=== PATIENT | female | born 1960 | race Caucasian/White ===

== ENCOUNTER → 2019-06-13 14:06 | Outpatient (CLI) | payer BC, SELFPAY ==
[2019-06-13 15:29] LABS: Blood Urea Nitrogen 27 mg/dL (7-17); Carbon Dioxide 23 mmol/L (22-32); Chloride 103 mmol/L (98-107); Estimated Glomerular Filt Rate > 60.0 mL/min (>60); Glucose 101 mg/dL (70-100); HEMOLYSIS < 15 (0-50); Potassium 4.7 mmol/L (3.4-5.1); Sodium 139 mmol/L (137-145)
== END ==
PROVIDERS: PCP Internal Medicine; Visit Provider Internal Medicine
DX: F31.9 Bipolar disorder, unspecified (principal)
CPT/HCPCS: 36415; 80048; 80178

== ENCOUNTER → 2019-06-17 12:43 | Outpatient (CLI) | payer BC, SELFPAY ==
[2019-06-20 11:23] LABS: Ionized Calcium 5.3 mg/dL (4.8-5.6)
[2019-06-20 15:58] LABS: Parathyroid Hormone Int 56 pg/mL (14-64)
== END ==
PROVIDERS: PCP Internal Medicine; Visit Provider Internal Medicine
DX: E83.52 Hypercalcemia (principal)
CPT/HCPCS: 36415; 82330; 83970

== ENCOUNTER → 2019-09-30 13:39 | Outpatient (CLI) | payer BC, SELFPAY ==
[2019-09-30 14:39] LABS: Hemoglobin A1C% w Est Avg Glu 7.8 % (4.0-6.0)
[2019-09-30 15:41] LABS: Blood Urea Nitrogen 30 mg/dL (7-17); Calcium 10.4 mg/dL (8.4-10.2); Carbon Dioxide 24 mmol/L (22-32); Chloride 104 mmol/L (98-107); Estimated Glomerular Filt Rate 57.4 mL/min (>60); Glucose 230 mg/dL (70-100); HEMOLYSIS 19 (0-50); Sodium 137 mmol/L (137-145)
[2019-09-30 16:01] LABS: TSH w/ Reflex to FT4 0.62 uIU/mL (0.47-4.68)
== END ==
PROVIDERS: PCP Internal Medicine; Visit Provider Psychiatry & Neurology Psychiatry
DX: F31.81 Bipolar II disorder (principal)
CPT/HCPCS: 36415; 80048; 80178; 83036; 84443

== ENCOUNTER → 2019-10-01 07:56 | Outpatient (CLI) | payer BC, SELFPAY ==
[2019-10-01 09:30] LABS: Lithium 0.9 mmol/L (0.6-1.2)
== END ==
PROVIDERS: PCP Internal Medicine; Visit Provider Psychiatry & Neurology Psychiatry
DX: F31.81 Bipolar II disorder (principal)
CPT/HCPCS: 36415; 80178

== ENCOUNTER → 2019-10-06 08:47 | Outpatient (CLI) | payer BC, SELFPAY ==
[2019-10-06 10:04] LABS: Lithium 1.1 mmol/L (0.6-1.2)
[2019-10-06 16:07] LABS: Blood Urea Nitrogen 35 mg/dL (7-17); Calcium 10.7 mg/dL (8.4-10.2); Carbon Dioxide 21 mmol/L (22-32); Chloride 106 mmol/L (98-107); Estimated Glomerular Filt Rate 57.4 mL/min (>60); Glucose 151 mg/dL (70-100); HEMOLYSIS < 15 (0-50); Potassium 4.9 mmol/L (3.4-5.1); Sodium 139 mmol/L (137-145)
== END ==
PROVIDERS: Family Provider Internal Medicine; PCP Internal Medicine; Visit Provider Psychiatry & Neurology Psychiatry
DX: F31.81 Bipolar II disorder (principal)
CPT/HCPCS: 36415; 80048; 80178

== ENCOUNTER → 2019-10-13 08:08 | Outpatient (CLI) | payer BC, SELFPAY ==
[2019-10-13 09:08] LABS: BUN Creatinine Ratio 25.6 (6-22); Blood Urea Nitrogen 23 mg/dL (7-17); Calcium 10.3 mg/dL (8.4-10.2); Carbon Dioxide 24 mmol/L (22-32); Chloride 106 mmol/L (98-107); Estimated Glomerular Filt Rate > 60.0 mL/min (>60); Glucose 220 mg/dL (70-100); HEMOLYSIS < 15 (0-50); Sodium 138 mmol/L (137-145)
[2019-10-13 09:10] LABS: Potassium 5.4 mmol/L (3.4-5.1)
[2019-10-13 09:32] LABS: Lithium 0.6 mmol/L (0.6-1.2)
== END ==
PROVIDERS: PCP Internal Medicine; Visit Provider Psychiatry & Neurology Psychiatry
DX: F31.81 Bipolar II disorder (principal)
CPT/HCPCS: 36415; 80048; 80178

== ENCOUNTER → 2019-10-15 09:18 | Outpatient (CLI) | payer BC, SELFPAY ==
[2019-10-15 10:39] LABS: Blood Urea Nitrogen 21 mg/dL (7-17); Carbon Dioxide 25 mmol/L (22-32); Chloride 103 mmol/L (98-107); Estimated Glomerular Filt Rate 57.4 mL/min (>60); Glucose 216 mg/dL (70-100); HEMOLYSIS < 15 (0-50); Sodium 139 mmol/L (137-145)
[2019-10-15 14:22] LABS: Potassium 5.9 mmol/L (3.4-5.1)
== END ==
PROVIDERS: PCP Internal Medicine; Visit Provider Internal Medicine
DX: E87.5 Hyperkalemia (principal)
CPT/HCPCS: 36415; 80048

== ENCOUNTER → 2019-10-17 08:48 | Outpatient (CLI) | payer BC, SELFPAY ==
[2019-10-17 09:52] LABS: BUN Creatinine Ratio 20.9 (6-22); Blood Urea Nitrogen 23 mg/dL (7-17); Calcium 10.7 mg/dL (8.4-10.2); Carbon Dioxide 23 mmol/L (22-32); Chloride 105 mmol/L (98-107); Estimated Glomerular Filt Rate 51.4 mL/min (>60); Glucose 251 mg/dL (70-100); HEMOLYSIS < 15 (0-50); Lithium 0.7 mmol/L (0.6-1.2); Potassium 4.8 mmol/L (3.4-5.1); Sodium 139 mmol/L (137-145)
== END ==
PROVIDERS: Family Provider Internal Medicine; PCP Internal Medicine; Visit Provider Psychiatry & Neurology Psychiatry
DX: F31.81 Bipolar II disorder (principal)
CPT/HCPCS: 36415; 80048; 80178

== ENCOUNTER → 2019-10-27 09:46 | Outpatient (CLI) | payer BC, SELFPAY ==
[2019-10-27 10:35] LABS: Lithium 0.7 mmol/L (0.6-1.2)
== END ==
PROVIDERS: Family Provider Psychiatry & Neurology Psychiatry; PCP Internal Medicine; Visit Provider Internal Medicine
DX: F31.9 Bipolar disorder, unspecified (principal)
CPT/HCPCS: 36415; 80178

== ENCOUNTER → 2019-10-29 11:26 | Outpatient (CLI) | payer BC, SELFPAY ==
[2019-10-29 12:30] LABS: Add Manual Diff / Slide Review NO; Basophils Absolute Auto 100 /uL (0-100); Basophils Percent Auto 1.5 % (0-2); Eosinophils Absolute Auto 300 /uL (0-450); Eosinophils Percent Auto 4.2 % (2-4); Hematocrit 39.2 % (36-46); Hemoglobin 13.3 g/dL (12.0-16.0); Lymphocytes Absolute Auto 2300 /uL (1100-4500); Lymphocytes Percent Auto 28.7 % (25-40); Mean Corpuscular HGB Conc 33.9 % (30-36); Mean Corpuscular Hemoglobin 29.7 PG (26-34); Mean Corpuscular Volume 87.6 fL (80-100); Monocytes Absolute Auto 400 /uL (0-900); Monocytes Percent Auto 5.4 % (3-14); Neutrophils Absolute Auto 4800 /uL (1500-7000); Neutrophils Percent Auto 60.2 % (50-75); Platelet Count 241 X10^3/uL (150-400); Red Blood Cell Count 4.47 X10^6/uL (4.0-5.2); Red Cell Distribution Width 13.9 % (11.6-14.8); White Blood Cell Count 7.9 X10^3/uL (4.5-11.0)
[2019-10-29 12:55] LABS: Lithium 0.6 mmol/L (0.6-1.2)
[2019-10-29 12:59] LABS: BUN Creatinine Ratio 24.4 (6-22); Blood Urea Nitrogen 22 mg/dL (7-17); Calcium 10.3 mg/dL (8.4-10.2); Carbon Dioxide 22 mmol/L (22-32); Chloride 103 mmol/L (98-107); Estimated Glomerular Filt Rate > 60.0 mL/min (>60); Glucose 336 mg/dL (70-100); HEMOLYSIS < 15 (0-50); Sodium 138 mmol/L (137-145)
[2019-10-29 13:29] LABS: TSH w/ Reflex to FT4 0.48 uIU/mL (0.47-4.68)
== END ==
PROVIDERS: Family Provider Psychiatry & Neurology Psychiatry; PCP Internal Medicine; Visit Provider Internal Medicine
DX: I10 Essential (primary) hypertension (principal); F31.62 Bipolar disorder, current episode mixed, moderate; E03.2 Hypothyroidism due to medicaments and other exogenous substances
CPT/HCPCS: 36415; 80048; 80178; 84443; 85025

== ENCOUNTER → 2019-11-06 09:01 | Outpatient (CLI) | payer BC, SELFPAY ==
[2019-11-06 11:35] LABS: Lithium 0.7 mmol/L (0.6-1.2)
[2019-11-06 11:38] LABS: Blood Urea Nitrogen 32 mg/dL (7-17); Calcium 10.4 mg/dL (8.4-10.2); Carbon Dioxide 24 mmol/L (22-32); Chloride 105 mmol/L (98-107); Estimated Glomerular Filt Rate 57.4 mL/min (>60); Glucose 206 mg/dL (70-100); HEMOLYSIS < 15 (0-50); Potassium 5.1 mmol/L (3.4-5.1); Sodium 138 mmol/L (137-145)
[2019-11-06 12:03] LABS: TSH w/ Reflex to FT4 0.77 uIU/mL (0.47-4.68)
== END ==
PROVIDERS: PCP Internal Medicine; Visit Provider Psychiatry & Neurology Psychiatry
DX: F31.81 Bipolar II disorder (principal)
CPT/HCPCS: 36415; 80048; 80178; 84443

== ENCOUNTER 2019-12-03 14:00 | Emergency (ER) | payer BC, SELFPAY ==
[2019-12-03 14:10] VITALS: BP 146/84; PULSE 93; RESP 15; TEMP 36.9; O2SAT 98; BMI 32.9
--- NOTE | 2019-12-03 14:26 | ED.NAVMDI ---
HPI - Nausea/Vomiting/Diarrhea <HAROON Aguila - Last Filed: 12/03/19 17:23> General Chief complaint: Nausea/Vomiting/Diarrhea Stated complaint: N/V/D Time Seen by Provider: 12/03/19 14:10 Source: patient Mode of arrival: Wheelchair Limitations: no limitations History of Present Illness HPI Narrative: 58-year-old female with a history of diabetes, bipolar, and a TIA, presents emergency department today complaining of nausea, vomiting, and diarrhea I started last night at 8:00 p.m.. She states she ate dinner and started vomiting. She last vomited for hours ago and last had an episode of diarrhea around the same time. She is slowly starting to feel better. She denies any abdominal pain, fevers, chills, chest pain, shortness of breath, dizziness, syncope, other concerns. He denies any abdominal surgeries or any sick contacts. Patient denies any recent antibiotic use. Related Data Home Medications Medication Instructions Recorded Confirmed aspirin 81 mg PO QDAY #0 01/22/17 insulin lispro [Humalog U-100 0 u SQ #0 01/27/17 Insulin] Previous Rx's Medication Instructions Recorded levothyroxine [Synthroid] 125 mcg PO QDAY@0600 #90 07/09/12 alprazolam 0.5 mg PO SEE INSTRUCTIONS #30 tab 12/06/16 lithium carbonate 300 mg PO BID #180 tab 12/12/16 nystatin 1 sandra TOPICAL 5XD #30 gm 01/22/17 triamcinolone acetonide 1 sandra TOPICAL BID #15 gm 01/22/17 ondansetron 4 mg PO Q6-8H #14 tab 12/03/19 Allergies Allergy/AdvReac Type Severity Reaction Status Date / Time clindamycin [CLINDAMYCIN] Allergy Severe Facial Verified 12/03/19 14:10 swelling erythromycin base Allergy Severe ANAPHYLAXIS Verified 12/03/19 14:10 Penicillins Allergy Severe ANAPHYLAXIS Verified 12/03/19 14:10 morphine AdvReac Mild VOMITING Verified 12/03/19 14:10 Review of Systems <HAROON Aguila - Last Filed: 12/03/19 17:23> Review of Systems Narrative: REVIEW OF SYSTEMS: GENERAL: Denies fever, chills, malaise, or wt. loss. HENT: No head trauma, sore throat, or dysphagia. EYES: No loss of vision, double vision, eye pain, or irritation. CARDIOVASCULAR: No chest pain, palpitations, or orthopnea. RESPIRATORY: No shortness of breath or cough. GASTROINTESTINAL: Reports nausea, vomiting, and diarrhea. GENITOURINARY: No flank pain, urinary incontinence, hesitancy, frequency, or dysuria. MUSCULOSKELETAL: No pain, weakness, or trauma. INTEGUMENTARY: No rash, lesions, or pruritus. NEURO: No numbness, tingling, memory loss, confusion, or headaches. PSYCH: No behavior or mood changes. Patient History <HAROON Aguila - Last Filed: 12/03/19 17:23> Surgical History Status post surgery (12/22/11) Status post tonsillectomy and adenoidectomy Social History Smoking Status: Unknown if ever smoked Smoking Status: Unknown if ever smoked alcohol intake frequency: holidays/special occasions only Substance Use Type: does not use Exam <HAROON Aguila - Last Filed: 12/03/19 17:23> Initial Vital Signs Initial Vital Signs: Vital Signs Temperature 98.5 F 12/03/19 14:10 Pulse Rate 93 H 12/03/19 14:10 Respiratory Rate 15 12/03/19 14:10 Blood Pressure 146/84 H 12/03/19 14:10 Pulse Oximetry 98 12/03/19 14:10 PHYSICAL EXAMINATION: GENERAL: Well groomed, alert, and cooperative. Answers questions promptly and appropriately. Vital signs noted. HENT: Normocephalic, atraumatic. Hearing intact. Oral mucosa is pink and moist. EYES: Conjunctiva pink, sclera white, no periorbital swelling. CARDIOVASCULAR: S1 and S2 sounds normal. Regular rate and rhythm, no murmurs, clicks, or bruits. No pedal edema. RESPIRATORY: Normal respiratory rate, trachea midline, airway patent. No stridor, nasal flaring or accessory muscle use. Lungs are clear in all oropeza without wheeze, rhonchi, or crackles. GASTROINTESTINAL: Bowel sounds normoactive. Abdomen is soft and non-tender. No organomegaly, no palpable masses. GENITALURINARY: No flank tenderness. MUSCULOSKELETAL: Normal gait and coordination. Equal tone and mass bilaterally. EXTREMITIES: CMS intact, no pedal edema. SKIN: Warm, dry, soft, appropriate color for ethnicity. No lesions, rashes, or wounds to visualized areas. NEURO: Alert and Oriented X 3. Good coordination. No ataxia, or sensory deficits, or cognitive issues. PSYCH: Appropriate affect and mood. <Mildred Reynolds MD - Last Filed: 12/04/19 06:53> Initial Vital Signs Initial Vital Signs: Vital Signs Temperature 98.5 F 12/03/19 14:10 Pulse Rate 93 H 12/03/19 14:10 Respiratory Rate 15 12/03/19 14:10 Blood Pressure 146/84 H 12/03/19 14:10 Pulse Oximetry 98 12/03/19 14:10 Course <HAROON Aguila - Last Filed: 12/03/19 17:23> Course Course Narrative: Patient was given 1 L of IV normal saline and Zofran for symptoms. After administration medications, patient states she is feeling significantly better. She continues to deny abdominal pain. patient states she is ready to be discharged home at this time. Orders Ordered: Discontinued Medications Sodium Chloride (Normal Saline 0.9%) 1,000 mls @ 1,000 mls/hr IV BOLUS ONE Stop: 12/03/19 15:23 Last Infusion: 12/03/19 15:42 Dose: 0 mls/hr Documented by: Admin: 12/03/19 14:39 Dose: 1,000 mls/hr Documented by: MERA Ondansetron HCl (Zofran) 4 mg IV NOW ONE Stop: 12/03/19 14:25 Last Admin: 12/03/19 14:38 Dose: 4 mg Documented by: MERA Vital Signs Vital signs: Vital Signs - 8 hr 12/03/19 14:10 12/03/19 15:00 Temperature 98.5 F Pulse Rate 93 H 79 Respiratory Rate 15 18 Blood Pressure 146/84 H Blood Pressure [Right Arm] 133/59 L Pulse Oximetry 98 98 <Mildred Reynolds MD - Last Filed: 12/04/19 06:53> Orders Ordered: Discontinued Medications Sodium Chloride (Normal Saline 0.9%) 1,000 mls @ 1,000 mls/hr IV BOLUS ONE Stop: 12/03/19 15:23 Last Infusion: 12/03/19 15:42 Dose: 0 mls/hr Documented by: Admin: 12/03/19 14:39 Dose: 1,000 mls/hr Documented by: MERA Ondansetron HCl (Zofran) 4 mg IV NOW ONE Stop: 12/03/19 14:25 Last Admin: 12/03/19 14:38 Dose: 4 mg Documented by: MERA Vital Signs Vital signs: Vital Signs - 8 hr 12/03/19 14:10 12/03/19 15:00 Temperature 98.5 F Pulse Rate 93 H 79 Respiratory Rate 15 18 Blood Pressure 146/84 H Blood Pressure [Right Arm] 133/59 L Pulse Oximetry 98 98 MDM - Nausea/Vomiting/Diarrhea <HAROON Aguila - Last Filed: 12/03/19 17:23> Medical Records Attestation: I reviewed the patient's medical records. Lab Data Attestation: I reviewed the patient's lab results. Result diagrams: 12/03/19 14:31 12/03/19 14:31 Labs: Lab Results 12/03/19 12/03/19 12/03/19 Range/Units 14:31 14:31 14:31 WBC 10.3 (4.5-11.0) X10^3/uL RBC 4.42 (4.0-5.2) X10^6/uL Hgb 13.1 (12.0-16.0) g/dL Hct 38.9 (36-46) % MCV 87.9 (80-100) fL MCH 29.7 (26-34) PG MCHC 33.8 (30-36) % RDW 13.5 (11.6-14.8) % Plt Count 234 (150-400) X10^3/uL Neut % (Auto) 90.4 H (50-75) % Lymph % (Auto) 5.3 L (25-40) % [place] % (Auto) 3.3 (3-14) % Eos % (Auto) 0.3 L (2-4) % Baso % (Auto) 0.7 (0-2) % Neut # (Auto) 9300 H (3026-1772) /uL Lymph # (Auto) 500 L (0429-7174) /uL [place] # (Auto) 300 (0-900) /uL Eos # (Auto) 0 (0-450) /uL Baso # (Auto) 100 (0-100) /uL Sodium 136 L (137-145) mmol/L Potassium 4.7 (3.4-5.1) mmol/L Chloride 104 (98-107) mmol/L Carbon Dioxide 20 L (22-32) mmol/L BUN 28 H (7-17) mg/dL Creatinine 0.90 (0.52-1.04) mg/dL Estimated GFR > 60.0 (>60) mL/min BUN/Creatinine Ratio 31.1 H (6-22) Glucose 302 H (70-100) mg/dL Calcium 9.8 (8.4-10.2) mg/dL Total Bilirubin 0.5 (0.2-1.3) mg/dL AST 29 (14-36) IU/L ALT 35 H (<35) IU/L Alkaline Phosphatase 43 (38-126) U/L Total Protein 7.4 (6.3-8.2) g/dL Albumin 4.5 (3.5-5.0) g/dL Globulin 2.9 (1.7-4.1) g/dL Albumin/Globulin Ratio 1.6 (1.0-2.8) [place] 1.0 (0.6-1.2) mmol/L MDM Narrative Medical decision making narrative: This is a 58-year-old female with a history of diabetes in bipolar, presenting to the emergency department for nausea, vomiting, and diarrhea for less than 24 hours which has slowly been resolving. I suspect this most likely caused by gastroenteritis due to resolution of symptoms in the short amount of time, lack of significant lab changes, and lack of other concerning symptoms such as abdominal pain or high fever. Differential also includes food poisoning, or early-onset abdominal etiology ( Less likely as symptoms have almost completely resolved after administration of saline and Zofran.). Patient remained hemodynamically stable throughout the emergency department stay. She did not vomit, or have any episodes of diarrhea during her stay at this time. Patient was discharged with Zofran and counseled extensively about return emergency department for any new or worsening symptoms such as abdominal pain, high fevers, uncontrollable vomiting. She agreed to plan of care verbalized understanding. <Mildred Reynolds MD - Last Filed: 12/04/19 06:53> Lab Data Labs: Lab Results 12/03/19 12/03/19 12/03/19 Range/Units 14:31 14:31 14:31 WBC 10.3 (4.5-11.0) X10^3/uL RBC 4.42 (4.0-5.2) X10^6/uL Hgb 13.1 (12.0-16.0) g/dL Hct 38.9 (36-46) % MCV 87.9 (80-100) fL MCH 29.7 (26-34) PG MCHC 33.8 (30-36) % RDW 13.5 (11.6-14.8) % Plt Count 234 (150-400) X10^3/uL Neut % (Auto) 90.4 H (50-75) % Lymph % (Auto) 5.3 L (25-40) % [place] % (Auto) 3.3 (3-14) % Eos % (Auto) 0.3 L (2-4) % Baso % (Auto) 0.7 (0-2) % Neut # (Auto) 9300 H (5813-5814) /uL Lymph # (Auto) 500 L (2453-9865) /uL [place] # (Auto) 300 (0-900) /uL Eos # (Auto) 0 (0-450) /uL Baso # (Auto) 100 (0-100) /uL Sodium 136 L (137-145) mmol/L Potassium 4.7 (3.4-5.1) mmol/L Chloride 104 (98-107) mmol/L Carbon Dioxide 20 L (22-32) mmol/L BUN 28 H (7-17) mg/dL Creatinine 0.90 (0.52-1.04) mg/dL Estimated GFR > 60.0 (>60) mL/min BUN/Creatinine Ratio 31.1 H (6-22) Glucose 302 H (70-100) mg/dL Calcium 9.8 (8.4-10.2) mg/dL Total Bilirubin 0.5 (0.2-1.3) mg/dL AST 29 (14-36) IU/L ALT 35 H (<35) IU/L Alkaline Phosphatase 43 (38-126) U/L Total Protein 7.4 (6.3-8.2) g/dL Albumin 4.5 (3.5-5.0) g/dL Globulin 2.9 (1.7-4.1) g/dL Albumin/Globulin Ratio 1.6 (1.0-2.8) [place] 1.0 (0.6-1.2) mmol/L Discharge Plan Departure Patient Disposition: Home Clinical Impression: Gastroenteritis Discharge Date/Time: 12/03/19 15:51 Instructions: DI for Viral Gastroenteritis -- Adult Activity Restrictions/Additional Instructions: Thank you for entrusting me with your care today. As discussed, I suspect ear symptoms are caused by viral gastroenteritis or food poisoning. Your labs are unremarkable. Your lithium level is 1.0 and is within normal limits. I have prescribed you an anti nausea medication, please take this as needed. Continue to drink fluids such as Gatorade. Follow up with your primary care provider in 1-2 weeks for further evaluation if symptoms continue. Return emergency department for new or worsening symptoms such as uncontrollable vomiting, high fevers, severe abdominal pain, chest pain, or other concerns. Prescriptions: New ondansetron 4 mg tablet,disintegrating 4 mg PO Q6-8H Qty: 14 RF: 0 No Action levothyroxine [Synthroid] 125 MCG tablet 125 mcg PO QDAY@0600 Qty: 90 RF: 3 alprazolam 0.5 MG tablet 0.5 mg PO SEE INSTRUCTIONS Qty: 30 RF: 0 lithium carbonate 300 MG tablet extended release 300 mg PO BID Qty: 180 RF: 5 aspirin 81 MG tablet,delayed release (DR/EC) 81 mg PO QDAY Qty: 0 RF: 0 triamcinolone acetonide 0.5 % cream 1 sandra Topical BID Qty: 15 RF: 1 nystatin 30 GM cream 1 sandra Topical 5XD Qty: 30 RF: 1 insulin lispro [Humalog U-100 Insulin] 100 UNIT/1 ML solution 0 u SQ Qty: 0 RF: 0 Referrals: Josseline Munson [Primary Care Provider] -
[2019-12-03 14:38] LABS: Add Manual Diff / Slide Review NO; Basophils Absolute Auto 100 /uL (0-100); Basophils Percent Auto 0.7 % (0-2); Eosinophils Absolute Auto 0 /uL (0-450); Eosinophils Percent Auto 0.3 % (2-4); Hematocrit 38.9 % (36-46); Hemoglobin 13.1 g/dL (12.0-16.0); Lymphocytes Absolute Auto 500 /uL (1100-4500); Lymphocytes Percent Auto 5.3 % (25-40); Mean Corpuscular HGB Conc 33.8 % (30-36); Mean Corpuscular Hemoglobin 29.7 PG (26-34); Mean Corpuscular Volume 87.9 fL (80-100); Monocytes Absolute Auto 300 /uL (0-900); Monocytes Percent Auto 3.3 % (3-14); Neutrophils Absolute Auto 9300 /uL (1500-7000); Neutrophils Percent Auto 90.4 % (50-75); Platelet Count 234 X10^3/uL (150-400); Red Blood Cell Count 4.42 X10^6/uL (4.0-5.2); Red Cell Distribution Width 13.5 % (11.6-14.8); White Blood Cell Count 10.3 X10^3/uL (4.5-11.0)
[2019-12-03] MEDS: ONDANSETRON 4 MG/2 ML INJ IV (14:38)
[2019-12-03] MEDS: SODIUM CHLORIDE 0.9% 1,000 ML 1000 ML IV (14:39)
[2019-12-03 14:49] LABS: Alanine Aminotransferase 35 IU/L (<35); Albumin 4.5 g/dL (3.5-5.0); Albumin Globulin Ratio 1.6 (1.0-2.8); Alkaline Phosphatase 43 U/L (38-126); Aspartate Aminotransferase 29 IU/L (14-36); BUN Creatinine Ratio 31.1 (6-22); Bilirubin Total 0.5 mg/dL (0.2-1.3); Blood Urea Nitrogen 28 mg/dL (7-17); Calcium 9.8 mg/dL (8.4-10.2); Carbon Dioxide 20 mmol/L (22-32); Chloride 104 mmol/L (98-107); Estimated Glomerular Filt Rate > 60.0 mL/min (>60); Globulin 2.9 g/dL (1.7-4.1); Glucose 302 mg/dL (70-100); HEMOLYSIS 44 (0-50); Potassium 4.7 mmol/L (3.4-5.1); Sodium 136 mmol/L (137-145); Total Protein 7.4 g/dL (6.3-8.2)
[2019-12-03 15:00] VITALS: BP 133/59; PULSE 79; RESP 18; O2SAT 98
== END 2019-12-03 15:51 | disposition home or self-care (01) ==
PROVIDERS: Emergency Provider Nurse Practitioner; PCP Internal Medicine
DX: K52.9 Noninfective gastroenteritis and colitis, unspecified (principal)
CPT/HCPCS: 36415; 80053; 80178; 85025; 96361; 96374; 99284; J2405

== ENCOUNTER → 2019-12-04 10:58 | Outpatient (CLI) | payer BC, SELFPAY ==
[2019-12-04 13:07] LABS: Lithium 0.6 mmol/L (0.6-1.2)
[2019-12-04 13:08] LABS: BUN Creatinine Ratio 23.6 (6-22); Blood Urea Nitrogen 26 mg/dL (7-17); Calcium 9.3 mg/dL (8.4-10.2); Carbon Dioxide 23 mmol/L (22-32); Chloride 104 mmol/L (98-107); Estimated Glomerular Filt Rate 51.4 mL/min (>60); Glucose 281 mg/dL (70-100); HEMOLYSIS < 15 (0-50); Potassium 4.3 mmol/L (3.4-5.1); Sodium 138 mmol/L (137-145)
== END ==
PROVIDERS: Family Provider Internal Medicine; PCP Internal Medicine; Visit Provider Psychiatry & Neurology Psychiatry
DX: F31.81 Bipolar II disorder (principal)
CPT/HCPCS: 36415; 80048; 80178

== ENCOUNTER → 2019-12-24 13:47 | Outpatient (CLI) | payer BC, SELFPAY ==
[2019-12-24 15:10] LABS: Lithium 0.6 mmol/L (0.6-1.2)
[2019-12-24 15:16] LABS: Blood Urea Nitrogen 23 mg/dL (7-17); Calcium 10.6 mg/dL (8.4-10.2); Carbon Dioxide 21 mmol/L (22-32); Chloride 104 mmol/L (98-107); Estimated Glomerular Filt Rate 57.1 mL/min (>60); Glucose 234 mg/dL (70-100); HEMOLYSIS < 15 (0-50); Potassium 4.6 mmol/L (3.4-5.1); Sodium 137 mmol/L (137-145)
== END ==
PROVIDERS: Family Provider Internal Medicine; PCP Internal Medicine; Referring Provider Psychiatry & Neurology Psychiatry; Visit Provider Psychiatry & Neurology Psychiatry
DX: F31.81 Bipolar II disorder (principal)
CPT/HCPCS: 36415; 80048; 80178

== ENCOUNTER → 2020-02-11 12:08 | Outpatient (CLI) | payer BC, SELFPAY ==
[2020-02-11 13:57] LABS: Influenza A - CEPHEID Flu A NEGATIVE (NEGATIVE); Influenza B - CEPHEID Flu B NEGATIVE (NEGATIVE)
[2020-02-13 04:07] LABS: COVID19 Sendout Not Detected (Not Detected)
== END ==
PROVIDERS: Family Provider Internal Medicine; PCP Internal Medicine; Visit Provider Physician Assistant
DX: R68.89 Other general symptoms and signs (principal)
CPT/HCPCS: 87502; 87635

== ENCOUNTER → 2020-05-14 13:54 | Outpatient (CLI) | payer BC, SELFPAY ==
[2020-05-14 15:24] LABS: BUN Creatinine Ratio 23.5 (6-22); Blood Urea Nitrogen 24 mg/dL (7-17); Calcium 10.6 mg/dL (8.4-10.2); Carbon Dioxide 21 mmol/L (22-32); Chloride 105 mmol/L (98-107); Estimated Glomerular Filt Rate 55.9 mL/min (>60); Glucose 206 mg/dL (70-100); HEMOLYSIS < 15 (0-50); Potassium 4.5 mmol/L (3.4-5.1); Sodium 136 mmol/L (137-145)
[2020-05-14 15:55] LABS: Lithium 0.5 mmol/L (0.6-1.2)
== END ==
PROVIDERS: Family Provider Internal Medicine; PCP Internal Medicine; Referring Provider Psychiatry & Neurology Psychiatry; Visit Provider Psychiatry & Neurology Psychiatry
DX: F31.81 Bipolar II disorder (principal)
CPT/HCPCS: 36415; 80048; 80178

== ENCOUNTER → 2020-07-30 14:02 | Outpatient (CLI) | payer BC, SELFPAY ==
[2020-07-30 15:59] LABS: Blood Urea Nitrogen 29 mg/dL (7-17); Carbon Dioxide 26 mmol/L (22-32); Chloride 105 mmol/L (98-107); Glucose 137 mg/dL (70-100); HEMOLYSIS < 15 (0-50); Sodium 139 mmol/L (137-145)
[2020-07-30 16:01] LABS: Calcium 10.5 mg/dL (8.4-10.2); Estimated Glomerular Filt Rate 39.4 mL/min (>60)
[2020-07-30 16:02] LABS: Potassium 5.5 mmol/L (3.4-5.1)
[2020-07-30 16:07] LABS: Lithium 0.8 mmol/L (0.6-1.2)
== END ==
PROVIDERS: Family Provider Internal Medicine; PCP Internal Medicine; Referring Provider Psychiatry & Neurology Psychiatry; Visit Provider Psychiatry & Neurology Psychiatry
DX: F31.81 Bipolar II disorder (principal)
CPT/HCPCS: 36415; 80048; 80178

== ENCOUNTER → 2020-08-05 10:39 | Outpatient (CLI) | payer BC, SELFPAY ==
[2020-08-05 12:03] LABS: Hemoglobin A1C% w Est Avg Glu 7.8 % (4.0-6.0)
[2020-08-05 12:17] LABS: BUN Creatinine Ratio 22.5 (6-22); Blood Urea Nitrogen 27 mg/dL (7-17); Calcium 10.1 mg/dL (8.4-10.2); Carbon Dioxide 24 mmol/L (22-32); Chloride 106 mmol/L (98-107); Estimated Glomerular Filt Rate 46.3 mL/min (>60); Glucose 183 mg/dL (70-100); HEMOLYSIS < 15 (0-50); Potassium 5.1 mmol/L (3.4-5.1); Sodium 139 mmol/L (137-145)
== END ==
PROVIDERS: Family Provider Internal Medicine; PCP Internal Medicine; Referring Provider Internal Medicine; Visit Provider Internal Medicine
DX: E87.5 Hyperkalemia (principal); E11.9 Type 2 diabetes mellitus without complications; Z79.4 Long term (current) use of insulin
CPT/HCPCS: 36415; 80048; 83036

== ENCOUNTER → 2020-08-09 11:16 | Outpatient (CLI) | payer BC, SELFPAY ==
[2020-08-09 12:11] LABS: BUN Creatinine Ratio 29.7 (6-22); Blood Urea Nitrogen 33 mg/dL (7-17); Carbon Dioxide 20 mmol/L (22-32); Chloride 105 mmol/L (98-107); Estimated Glomerular Filt Rate 50.7 mL/min (>60); Glucose 229 mg/dL (70-100); HEMOLYSIS < 15 (0-50); Potassium 4.9 mmol/L (3.4-5.1); Sodium 139 mmol/L (137-145)
[2020-08-09 13:10] LABS: Lithium 0.5 mmol/L (0.6-1.2)
== END ==
PROVIDERS: Family Provider Internal Medicine; PCP Internal Medicine; Referring Provider Psychiatry & Neurology Psychiatry; Visit Provider Psychiatry & Neurology Psychiatry
DX: F31.81 Bipolar II disorder (principal)
CPT/HCPCS: 36415; 80048; 80178

== ENCOUNTER → 2020-08-25 13:58 | Outpatient (CLI) | payer BC, SELFPAY ==
--- NOTE | 2020-08-25 14:02 | DIET.PN ---
Dietary Progress Note Assessment: 59y F seeking help from RD for uncontrolled DM c hyperglycemia and CKD3. Pt has been cutting back on all dairy, protein, and potassium foods to manage kidney function and has confusion regarding reccs for DM2 and CKD one says to eat refined carbs the other says not to Pt reports 34y hx DM2, has bipolar so takes lithium for 25y, had triple bleed stroke and was in intensive inpatient rehab and at some point was on dialysis, now at lowest dose lithium possible, but has kidney impairment. Pt has CGM which is helpful as she has difficulty manipulating numbers in her head or writing them r/t stroke. Pts CGM shows a consistent spike in BG around 5pm where it goes between 250-350 and pt reports associated fatigue and irritability. Pt cannot correlate this to food intake as it is 3hr after main meal. Pt stopped swimming during covid- will go back tomorrow, noticed BG spike started during covid when she stopped swimming. Pt takes long acting 30U at 6am and 4pm and switched it herself from 7am and 7pm recently to try to manage her afternoon BG spike. Metformin 1,000mg bid Pt would like to have flexibility to eat a gourmet dessert on occasion and use lantus to bring bg down Usual Day: 6am: wakes, drinks coffee 10oz black 7am(Breakfast): steel cut oats c (seeds-flax, sesame, slivered almonds), apple, raisins, currants meds 11am (mini lunch): apple c cheese (havarti, really sharp cheddar) 2pm (main meal): vegetable stir rosado, salmon, cod, pork, basmati rice 6:30 (small meal)- leftovers goes to bed 9pm likes to get 9hrs sleep, gets it every night, feels refreshed in am BG would drop 85 and wake her up has toast c butter and goat milk BG goes up to 250 or higher at 5pm most days loves handful nuts, tofu, beans, loves vegetables and fruit bakes bread Regularly eats tomato, avocado, potato in soup, loves soup drinks: fizzy water, lemon juce in hot water c chamomile, no etoh Labs: eGFR: 55.9-->39.4-->46.3-->50.7 L all in 3mo Cr: 1.02-->1.38-->1.2-->1.11 H K+: 4.5-->5.5-->5.1-->4.9 no phosphorus labs noted Nutrition Diagnosis: 1. altered nutrition related laboratory values r/t kidney impairment and nutrition related knowledge deficit aeb pt has impaired kidney labs (see above), pt is confused about what to eat to manage DM2 and CKD. Interventions: 1. Educated pt on CKD/DM2 diet tailored to her current set of labs and taking into consideration her limited ability to manipulate numbers. 2. Discussed protein intake using food models and problem solved each meal so pt eating appropriate pro amount to support renal fxn. Pt will choose plant proteins over animal. 3. Discussed potassium in diet. Using handout, highlighted items to limit and discussed proportion of each including how to pair together. Provided pt handout on reducing potassium in potatoes for occasional consumption. 4. Discussed phosphorus in foods, to avoid processed foods containing phos additives. To limit dairy to 1 serving per day. To not worry as much about beans/nuts as the phosphorus is only 60% bioavailable but limit to 1/2c per meal. 5. Request pt get phosphorus lab drawn with others on regular basis. EER: 50g PRO limit, 2g sodium limit, 2g phos limit, 2g K+ limit Monitoring/Evaluations: f/u in 2 w to assess progress, problem solve barriers, and assess new labs. We will see how reintroducing swimming affects afternoon BG, if no change, consider medication modification.
== END ==
PROVIDERS: Family Provider Internal Medicine; PCP Internal Medicine; Referring Provider Internal Medicine; Visit Provider Internal Medicine
DX: E11.22 Type 2 diabetes mellitus with diabetic chronic kidney disease (principal); E11.65 Type 2 diabetes mellitus with hyperglycemia; N18.30 Chronic kidney disease, stage 3 unspecified; N28.9 Disorder of kidney and ureter, unspecified; Z79.4 Long term (current) use of insulin; Z71.3 Dietary counseling and surveillance
CPT/HCPCS: 97802

== ENCOUNTER → 2020-09-21 12:37 | Outpatient (CLI) | payer BC, SELFPAY ==
[2020-09-21 15:51] LABS: Lithium 0.5 mmol/L (0.6-1.2)
[2020-09-21 15:55] LABS: BUN Creatinine Ratio 25.7 (6-22); Blood Urea Nitrogen 27 mg/dL (7-17); Calcium 9.8 mg/dL (8.4-10.2); Carbon Dioxide 21 mmol/L (22-32); Chloride 109 mmol/L (98-107); Glucose 189 mg/dL (70-100); HEMOLYSIS < 15 (0-50); Potassium 4.7 mmol/L (3.4-5.1); Sodium 138 mmol/L (137-145)
== END ==
PROVIDERS: Family Provider Internal Medicine; PCP Internal Medicine; Referring Provider Psychiatry & Neurology Psychiatry; Visit Provider Psychiatry & Neurology Psychiatry
DX: F31.81 Bipolar II disorder (principal)
CPT/HCPCS: 36415; 80048; 80178; 83036

== ENCOUNTER 2020-10-20 09:57 | Observation (INO) | payer BC, SELFPAY ==
[2020-10-20] VITALS (19 sets, daily range): BP systolic 136–199; BP diastolic 62–84; PULSE 51–156; RESP 13–26; TEMP 36.4–37.1; O2SAT 97–99; BMI 34.7
--- NOTE | 2020-10-20 | DI.MRI.S_ITS ---
PROCEDURE: MR STROKE Pre- and post-contrast brain MRI, non-contrast brain MR angiogram, pre- and postcontrast neck MR angiogram INDICATIONS: L face and numbness and L arm weakness TECHNIQUE: Brain: Noncontrast axial T1 spin echo, axial T2 fast spin echo, sagittal and axial FLAIR, coronal T2 fast spin echo, axial gradient echo, axial diffusion and ADC through the brain. After the administration of contrast, axial 3D VIBE of the cranial vasculature and brain. Brain MRA: Non-contrast 3-D time of flight MR angiogram, with multiple ylgupbq-fvypzvbex-xmaqnrpodj (MIP) reformats performed. Neck MRA: Axial and sagittal TruFISP through the neck. Coronal dynamic MR angiogram during administration of contrast in the arterial and venous phases, with 3-dimenstional vqlgxwt-xsecejztl-nazpfduilu (MIP) reformats constructed from subtraction images. COMPARISON: [facility], CT, CT ANGIO HEAD AND NECK, 10/20/2020, 11:24. [facility], CT, CT STROKE, 10/20/2020, 10:48. [facility], MR, MR BRAIN WITHOUT CONTRAST, 01/23/2019, 14:08. [facility], MR, MR BRAIN WITHOUT CONTRAST, 01/22/2019, 16:52. [facility], , STROKE PROTOCOL, 03/12/2016, 14:18. FINDINGS: Image quality: Excellent. BRAIN: CSF spaces: Ventricles are normal in size and shape. Basal cisterns are patent. No extra-axial fluid collections. Brain: No intracranial bleeds or mass effects. Mckeon-white matter interface is normal. Diffusion weighted images show no acute ischemic insults. Brainstem appears normal. Brain parenchymal volume loss is seen. Chronic small vessel ischemic changes are seen. Normal intravascular flow voids are present. No abnormal intracranial enhancement. Skull and face: Calvarial marrow signal is normal. Orbits appear normal. Sinuses: Sinuses and mastoids are clear. BRAIN MR ANGIOGRAM: Anterior circulation: Intracranial internal carotid arteries are normal in size and enhancement. The flow within the paired anterior cerebral arteries is normal and symmetric. The flow within the middle cerebral arteries is normal and symmetric. The anterior communicating artery is not well seen. No stenoses, occlusions, or aneurysms. Posterior circulation: The visualized portions of the vertebral arteries demonstrate normal caliber, and join to form a normal appearing basilar artery. The flow within the posterior cerebral arteries is normal and symmetric. No stenoses, occlusions, or aneurysms. NECK MR ANGIOGRAM: Carotids: Great vessels demonstrate a conventional anatomy as they arise from the aortic arch. The origins of the common carotid arteries appear patent. The calibers and courses of both common carotid arteries are normal. The bifurcation regions appear normal bilaterally. The internal carotid arteries demonstrate normal course and caliber. Posterior circulation: The origins of the vertebral arteries appear patent. More superior portions of both vertebral arteries demonstrate normal course and caliber, and join to form a normal appearing basilar artery. Miscellaneous: Subclavian arteries appear patent. Pre-contrast images through the neck show no soft tissue abnormalities. IMPRESSION: BRAIN MRI: No findings of acute or subacute infarction can be seen. No masses or abnormal enhancement can be seen. BRAIN MR ANGIOGRAM: No significant intracranial arterial abnormality is seen. NECK MR ANGIOGRAM: Within the arteries of the neck, no hemodynamically significant stenosis can be seen. Dictated by: Dick Obrien M.D. on 10/20/2020 at 15:35 Approved by: Dick Obrien M.D. on 10/20/2020 at 15:39
--- NOTE | 2020-10-20 10:05 | PC.NURSE ---
Following triage pt asked who the doctor was, I told her Dr Lion which she responded I'm out of here I'm not seeing him. Pt requesting to leave,I informed her that I did not think that was a very good idea. She said she would talk it over with her and make a decision if she would stay here or not.
--- NOTE | 2020-10-20 10:21 | PC.NURSE ---
Pt decided to stay here in the ED and be treated. Pt hooked back up to the monitors,RT called for EKG and Dr Lion informed he could go see her now.
--- NOTE | 2020-10-20 10:31 | ED.NEUROSD ---
HPI - Neuro Symptoms/Deficit General Chief Complaint: Neuro Symptoms/Deficit Stated Complaint: Possible Stroke/Mid back pain Time Seen by Provider: 10/20/20 10:06 Source: patient Mode of arrival: Ambulatory Limitations: no limitations History of Present Illness HPI Narrative: The patient awoke this morning with left-sided numbness. She has no associated visual changes. She denies confusion. Her notes no dysarthria. 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 Brain MRI in 2017 revealed no evidence of infarct. There was mild chronic right white matter disease with small vessel ischemic changes. About 9:30 this morning she was trying to make coffee. She informed her of the numbness aw well as feeling weakness. His unclear if the week was new. She has no difficulty with gait. Additionally she has a history of hypertension and diabetes. She denies headache, visual changes, chest pain or dyspnea. She takes lithium 300 mg b.i.d. for bipolar disorder. Medical records also suggest schizoaffective disorder. Medical records shows prior visit with CVA and TIA symptoms. She was seen here in 2018 with left-sided weakness, suggestive of symptoms today. She had a lithium level at that time of 0.8. On Anticoagulants: No Related Data Home Medications Medication Instructions Recorded Confirmed aspirin 81 mg PO QDAY #0 01/22/17 06/27/20 insulin lispro [Humalog U-100 0 u SQ #0 01/27/17 06/27/20 Insulin] Previous Rx's Medication Instructions Recorded levothyroxine [Synthroid] 125 mcg PO QDAY@0600 #90 07/09/12 alprazolam 0.5 mg PO SEE INSTRUCTIONS #30 tab 12/06/16 lithium carbonate 300 mg PO BID #180 tab 12/12/16 nystatin 1 sandra TOPICAL 5XD #30 gm 01/22/17 triamcinolone acetonide 1 sandra TOPICAL BID #15 gm 01/22/17 ondansetron 4 mg PO Q6-8H #14 tab 12/03/19 albuterol sulfate 90 mcg/actuation 2 puff INHALATION Q4-6H PRN #18 02/11/20 aerosol inhaler gram Allergies Allergy/AdvReac Type Severity Reaction Status Date / Time clindamycin [CLINDAMYCIN] Allergy Severe Facial Verified 10/20/20 10:26 swelling erythromycin base Allergy Severe ANAPHYLAXIS Verified 10/20/20 10:26 Penicillins Allergy Severe ANAPHYLAXIS Verified 10/20/20 10:26 morphine AdvReac Mild VOMITING Verified 10/20/20 10:26 Review of Systems Constitutional Constitutional: Reports system reviewed and no additional complaints, except as documented and Denies frequent falls Eyes Eyes: Denies exophthalmos and Denies change in vision ENT Ears, Nose, Mouth, and Throat: Denies change in voice, Denies dizziness, Denies neck pain and Denies sore throat Comments: No headache Cardiovascular Cardiovascular: Denies chest pain, Denies irregular heart rhythm, Denies lightheadedness and Denies dyspnea Respiratory Respiratory: Denies cough, Denies dyspnea and Denies wheezing Gastrointestinal Gastrointestinal: Denies abdominal pain, Denies diarrhea, Denies nausea and Denies vomiting Musculoskeletal Musculoskeletal: Denies back pain, Denies neck pain and Denies numbness Integumentary/Breasts Skin/Breast: Denies pruritus, Denies erythema and Denies rash Neurologic Neurologic: Denies behavioral changes, Denies confusion, Denies dizziness, Denies frequent falls and Denies numbness Comments: Left-sided numbness, left arm weakness. See HPI. Psychiatric Psychiatric: Denies behavioral changes and Denies confusion Allergic/Immunologic Allergic/Immunologic: Denies wheezing Patient History Medical History Bipolar affective disorder Controlled type 2 diabetes mellitus without complication Essential (primary) hypertension Hemorrhagic cerebrovascular accident (CVA) Otitis externa Surgical History Status post surgery (12/22/11) Status post tonsillectomy and adenoidectomy Social History Smoking Status: Former smoker Smoking Status: Former smoker alcohol intake frequency: holidays/special occasions only Substance Use Type: does not use Exam Initial Vital Signs Initial Vital Signs: Vital Signs Temperature 97.8 F 10/20/20 09:58 Pulse Rate 68 10/20/20 09:58 Respiratory Rate 16 10/20/20 09:58 Blood Pressure 162/74 H 10/20/20 09:58 Pulse Oximetry 98 10/20/20 09:58 Const General: cooperative and well developed Nutritional Appearance: well nourished [facility] Head: normocephalic and atraumatic Mouth: oral mucosae normal and moist mucous membranes Teeth and gingiva: dentition normal Throat: tonsils normal and uvula midline Eyes General: appearance normal, both eyes and all related structures Eyelids: eyelids normal Conjunctivae: conjunctivae normal Sclera: sclerae normal Pupils: PERRL EOM: EOM intact bilaterally Other: No visual field cut Neck Neck: full ROM and No lymphadenopathy Chest Chest: normal inspection of the chest Resp Effort & Inspection: normal respiratory effort and able to speak in complete sentences Auscultation: clear to auscultation bilaterally, no rales, no rhonchi and no wheezes Cardio Rate: regular rate Rhythm: regular rhythm Heart Sounds: no click, no gallops, no murmurs and no rubs Pulses: normal peripheral pulses GI Inspection: non-distended Palpation: soft, no hepatosplenomegaly, No guarding, No pulsatile mass and No tender Auscultation: normal bowel sounds Back/Spine/Pelvis Back: No back tenderness and No CVA tenderness Skin General: no rashes or lesions noted and No petechiae Neuro General: patient alert, patient oriented x3 and gait normal Cranial Nerves: CN's II-XI intact bilaterally Speech: speech normal Other: See NIHSS Extrem General: full ROM, no clubbing, cyanosis or edema, no pedal edema and no calf tenderness Psych Mental Status: mental status grossly normal Speech and Movement: speech and movement normal Affect: normal affect Thought Process: normal Scores NIH Stroke Scale Level of Conciousness: Alert, keenly responsive Ask month/age: Answers both questions correctly. Open/close eyes, close hand: Performs both tasks correctly Best gaze horizontal: Normal Visual oropeza: No visual loss Facial palsy: Normal symetrical movement Left arm drift: Drifts down, not to bed Right arm drift: No drift for full 10 sec Left leg drift: No drift for full 5 sec Right leg drift: No drift for full 5 sec Limb ataxia: Present in one limb Sensory on face/arms/legs: Mild to moderate sensory loss, can tell touch Best language: No aphasia, normal Dysarthria: Normal Extinction or inattention: No abnormality Total NIH Stroke scale score: 3 Course Course Course Narrative: The patient was region found to have NIHSS of 3. CT was normal. Aspirin during 24 mg was given. A follow-up CTA of the head neck is also without significant findings. I discussed this case with Stroke Neurology at [facility], Dr. Davis. The patient already takes baby aspirin 1 daily. The patient is not a candidate for tPA or IR intervention given her prior history risk factors, he recommended switching the aspirin to Plavix. 75 mg was given. Prior to admission, her neurologic exam was repeated. Left facial numbness has resolved, left arm numbness persist. Left arm weakness has resolved. 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 It is noted the patient has a history of lithium toxicity. Her lithium level was 0.6. The case was discussed with the hospitalist, Dr. Deal. The patient be admitted. COVID-19 testing is pending prior to admission. Orders Ordered: ED Orders 10/20/20 10:38 CT Stroke Stat 10/20/20 10:40 Basic Metabolic Panel Stat Complete Blood Count AUTO DIFF Stat Yeoman Stat Partial Thromboplastin Time Stat Prothrombin Time INR Stat 10/20/20 11:00 CT angio head and neck Stat 10/20/20 11:50 Urinalysis Screen (Dip Only) Stat Urine Drug Screen, Rapid Stat 10/20/20 11:59 EKG-12 Lead Stat 10/20/20 14:12 COVID19 Stat Sodium Chloride (Normal Saline 0.9%) 1,000 mls @ 150 mls/hr IV CONT HAL Last Admin: 10/20/20 11:06 Dose: 150 mls/hr Documented by: VINICIO Discontinued Medications Aspirin (Aspirin 81 Mg Chew Tab) 324 mg PO NOW ONE Stop: 10/20/20 11:02 Last Admin: 10/20/20 11:06 Dose: 324 mg Documented by: VINICIO Clopidogrel Bisulfate (Clopidogrel 75 Mg Tablet) 75 mg PO NOW ONE Stop: 10/20/20 13:54 Last Admin: 10/20/20 14:08 Dose: 75 mg Documented by: FRAN Vital Signs Vital signs: Vital Signs - 8 hr 10/20/20 09:58 10/20/20 11:05 10/20/20 11:30 Temperature 97.8 F Pulse Rate 68 58 L 156 H Respiratory Rate 16 20 18 Blood Pressure 162/74 H 148/76 H 148/67 H Pulse Oximetry 98 98 99 10/20/20 12:03 10/20/20 12:11 10/20/20 12:30 Temperature Pulse Rate 146 H 60 51 L Respiratory Rate 15 13 15 Blood Pressure 199/84 H Pulse Oximetry 99 99 98 10/20/20 12:31 10/20/20 13:00 10/20/20 13:30 Temperature Pulse Rate 51 L 59 L 53 L Respiratory Rate 15 26 H 16 Blood Pressure 136/62 157/75 H Pulse Oximetry 98 99 98 10/20/20 13:31 10/20/20 14:00 10/20/20 14:01 Temperature Pulse Rate 54 L 53 L 58 L Respiratory Rate 16 25 H 20 Blood Pressure 157/71 H 155/68 H Pulse Oximetry 98 98 98 MDM - Neuro Symptoms/Deficit Lab Data Result diagrams: 10/20/20 10:40 10/20/20 10:40 Labs: Lab Results 10/20/20 10/20/20 10/20/20 Range/Units 10:40 10:40 10:40 WBC 8.0 (4.5-11.0) X10^3/uL RBC 4.45 (4.0-5.2) X10^6/uL Hgb 13.0 (12.0-16.0) g/dL Hct 39.1 (36-46) % MCV 87.8 (80-100) fL MCH 29.2 (26-34) PG MCHC 33.3 (30-36) % RDW 13.6 (11.6-14.8) % Plt Count 220 (150-400) X10^3/uL Neut % (Auto) 58.8 (50-75) % Lymph % (Auto) 28.3 (25-40) % [place] % (Auto) 7.9 (3-14) % Eos % (Auto) 3.7 (2-4) % Baso % (Auto) 1.3 (0-2) % Neut # (Auto) 4700 (4345-9448) /uL Lymph # (Auto) 2300 (7497-2919) /uL [place] # (Auto) 600 (0-900) /uL Eos # (Auto) 300 (0-450) /uL Baso # (Auto) 100 (0-100) /uL PT 10.3 (10.1-12.7) SECONDS INR 0.9 (0.9-1.3) APTT 31 (26.4-36.2) SECONDS Sodium 140 (137-145) mmol/L Potassium 5.0 (3.4-5.1) mmol/L Chloride 107 (98-107) mmol/L Carbon Dioxide 25 (22-32) mmol/L BUN 22 H (7-17) mg/dL Creatinine 1.02 (0.52-1.04) mg/dL Estimated GFR 55.9 L (>60) mL/min BUN/Creatinine Ratio 21.6 (6-22) Glucose 152 H (70-100) mg/dL Calcium 10.1 (8.4-10.2) mg/dL Urine Color Urine Appearance Urine pH (4.5-8.0) Ur Specific [place] (1.000-1.035) Urine Protein (Negative) Urine Glucose (UA) (Negative) g/dL Urine Ketones (NEGATIVE) Urine Occult Blood (Negative) Urine Nitrate (Negative) Urine Bilirubin (NEGATIVE) Urine Urobilinogen (0.2) E.U./dL Ur Leukocyte Esterase (NEGATIVE) U Opiates 300ng/mL cut (Negative) Ur Oxycodone Screen (Negative) Urine Methadone Screen (Negative) Ur Barbiturates Screen (Negative) U Tricyclic Antidepress (Negative) Ur Phencyclidine Scrn (Negative) Ur Amphetamines Screen (Negative) U Methamphetamines Scrn (Negative) Ur MDMA Scrn (Ecstasy) (Negative) U Benzodiazepines Scrn (Negative) Yeoman (0.6-1.2) mmol/L Urine Cocaine Screen (Negative) U Marijuana (THC) Screen (Negative) COVID-19 PCR (Negative) 10/20/20 10/20/20 10/20/20 Range/Units 10:40 11:50 11:50 WBC (4.5-11.0) X10^3/uL RBC (4.0-5.2) X10^6/uL Hgb (12.0-16.0) g/dL Hct (36-46) % MCV (80-100) fL MCH (26-34) PG MCHC (30-36) % RDW (11.6-14.8) % Plt Count (150-400) X10^3/uL Neut % (Auto) (50-75) % Lymph % (Auto) (25-40) % [place] % (Auto) (3-14) % Eos % (Auto) (2-4) % Baso % (Auto) (0-2) % Neut # (Auto) (6826-0815) /uL Lymph # (Auto) (7570-3560) /uL [place] # (Auto) (0-900) /uL Eos # (Auto) (0-450) /uL Baso # (Auto) (0-100) /uL PT (10.1-12.7) SECONDS INR (0.9-1.3) APTT (26.4-36.2) SECONDS Sodium (137-145) mmol/L Potassium (3.4-5.1) mmol/L Chloride (98-107) mmol/L Carbon Dioxide (22-32) mmol/L BUN (7-17) mg/dL Creatinine (0.52-1.04) mg/dL Estimated GFR (>60) mL/min BUN/Creatinine Ratio (6-22) Glucose (70-100) mg/dL Calcium (8.4-10.2) mg/dL Urine Color Yellow Urine Appearance Clear Urine pH 6.0 (4.5-8.0) Ur Specific [place] <=1.005 (1.000-1.035) Urine Protein Negative (Negative) Urine Glucose (UA) Negative (Negative) g/dL Urine Ketones Negative (NEGATIVE) Urine Occult Blood Negative (Negative) Urine Nitrate Negative (Negative) Urine Bilirubin Negative (NEGATIVE) Urine Urobilinogen 0.2 (0.2) E.U./dL Ur Leukocyte Esterase Negative (NEGATIVE) U Opiates 300ng/mL cut Negative (Negative) Ur Oxycodone Screen Negative (Negative) Urine Methadone Screen Negative (Negative) Ur Barbiturates Screen Negative (Negative) U Tricyclic Antidepress Negative (Negative) Ur Phencyclidine Scrn Negative (Negative) Ur Amphetamines Screen Negative (Negative) U Methamphetamines Scrn Negative (Negative) Ur MDMA Scrn (Ecstasy) Negative (Negative) U Benzodiazepines Scrn Negative (Negative) Yeoman 0.6 (0.6-1.2) mmol/L Urine Cocaine Screen Negative (Negative) U Marijuana (THC) Screen Negative (Negative) COVID-19 PCR (Negative) 10/20/20 Range/Units 14:12 WBC (4.5-11.0) X10^3/uL RBC (4.0-5.2) X10^6/uL Hgb (12.0-16.0) g/dL Hct (36-46) % MCV (80-100) fL MCH (26-34) PG MCHC (30-36) % RDW (11.6-14.8) % Plt Count (150-400) X10^3/uL Neut % (Auto) (50-75) % Lymph % (Auto) (25-40) % [place] % (Auto) (3-14) % Eos % (Auto) (2-4) % Baso % (Auto) (0-2) % Neut # (Auto) (9481-8029) /uL Lymph # (Auto) (1631-0856) /uL [place] # (Auto) (0-900) /uL Eos # (Auto) (0-450) /uL Baso # (Auto) (0-100) /uL PT (10.1-12.7) SECONDS INR (0.9-1.3) APTT (26.4-36.2) SECONDS Sodium (137-145) mmol/L Potassium (3.4-5.1) mmol/L Chloride (98-107) mmol/L Carbon Dioxide (22-32) mmol/L BUN (7-17) mg/dL Creatinine (0.52-1.04) mg/dL Estimated GFR (>60) mL/min BUN/Creatinine Ratio (6-22) Glucose (70-100) mg/dL Calcium (8.4-10.2) mg/dL Urine Color Urine Appearance Urine pH (4.5-8.0) Ur Specific [place] (1.000-1.035) Urine Protein (Negative) Urine Glucose (UA) (Negative) g/dL Urine Ketones (NEGATIVE) Urine Occult Blood (Negative) Urine Nitrate (Negative) Urine Bilirubin (NEGATIVE) Urine Urobilinogen (0.2) E.U./dL Ur Leukocyte Esterase (NEGATIVE) U Opiates 300ng/mL cut (Negative) Ur Oxycodone Screen (Negative) Urine Methadone Screen (Negative) Ur Barbiturates Screen (Negative) U Tricyclic Antidepress (Negative) Ur Phencyclidine Scrn (Negative) Ur Amphetamines Screen (Negative) U Methamphetamines Scrn (Negative) Ur MDMA Scrn (Ecstasy) (Negative) U Benzodiazepines Scrn (Negative) Ye[place] (0.6-1.2) mmol/L Urine Cocaine Screen (Negative) U Marijuana (THC) Screen (Negative) COVID-19 PCR Negative (Negative) Imaging Data CT scan - head: Radiologist's Impression: 60 Kenn Lion MD Find Patient Imaging - Jammie Patiño 59 F 1960 ACTIVITY DATE EXAM STATUS AUTHOR 10/20/20 11:00 Signed Haroon Kendall 10/20/20 10:38 Signed Prema Russell ORDER STATUS ORDER START ORDER DETAIL MR stroke Ordered 10/20/[address] [id number] Scan ReportSigned Patient: Jammie Patiño LMR#: [id number]: 1960Acct:[id number]/Sex: 59 / FDate of Service: 10/20/20Loc: EDAccession Number: [id number] Procedure: CT Stroke Ordering Provider: Kenn Lion MD PROCEDURE: CT STROKE INDICATIONS: Left side numbness, left side weakness. TECHNIQUE: Noncontrast 4.5 mm thick angled axial sections acquired from the foramen magnum to the vertex, with coronal reformats. For radiation dose reduction, the following was used: automated exposure control, adjustment of mA and/or kV according to patient size. COMPARISON: [facility], MR, MR BRAIN WITHOUT CONTRAST, 01/23/2019, 14:08. [facility], CT, HEAD WITHOUT CONTRAST, 03/11/2016, 19:06. FINDINGS: Image quality: Excellent. CSF spaces: Basal cisterns are patent. No extra-axial fluid collections. Ventricles are prominent but symmetric in size and shape. Brain: No midline shift. No intracranial masses or hemorrhage. Mild cerebral volume loss. Mild periventricular white matter chronic small vessel ischemic changes. Skull and face: Calvarium and visualized facial bones are intact, without suspicious lesions. Sinuses: Visualized sinuses and mastoids are clear. IMPRESSION: 1. No acute intracranial abnormalities. The result was discussed with Dr. Lion prior to dictation. This study fulfills neurological imaging criteria for inclusion or exclusion of acute stroke therapies based on available published neurological imaging guidelines. Dictated by: Ammy Russell M.D. on 10/20/2020 at 10:58 Approved by: Ammy Russell M.D. on 10/20/2020 at 11:01 CTA head and neck: Radiologist's Impression: [address] [id number] Scan ReportSigned Patient: Jammie Patiño LMR#: [id number]: 1960Acct:[id number]/Sex: 59 / FDate of Service: 10/20/20Loc: EDAccession Number: [id number] Procedure: CT angio head and neck Ordering Provider: Kenn Lion MD PROCEDURE: CT ANGIO HEAD AND NECK INDICATIONS: Left side weakness and numbness. TECHNIQUE: Pre-contrast 4.5 mm thick sections acquired from the foramen magnum to the vertex. After the administration of intravenous contrast, 1 mm thick sections acquired from the aortic arch through the [place] of [place]. Post-contrast 4.5 mm thick sections then re-acquired from the foramen magnum to the vertex. 3-dimensional [id number]-nhsaxrzsrf (MIP) and/or volume rendering reformats were acquired of the central intracranial vasculature and neck separately. COMPARISON: [facility], CT, CT STROKE, 10/20/2020, 10:48. [facility], MR, MR BRAIN WITHOUT CONTRAST, 01/23/2019, 14:08. [facility], MR, MR BRAIN WITHOUT CONTRAST, 01/22/2019, 16:52. [facility], CT, CT ANGIO HEAD AND NECK, 01/22/2019, 10:53. [facility], CT, HEAD WITHOUT CONTRAST, 03/12/2018, 19:23. [facility], MR, STROKE PROTOCOL, 03/12/2016, 14:18. [facility], CT, HEAD WITHOUT CONTRAST, 03/11/2016, 19:06. FINDINGS: Image quality: Excellent. BRAIN: CSF spaces: Ventricles are normal in size and shape. Basal cisterns are patent. No extra-axial fluid collections. Brain: No midline shift. No intracranial bleeds or masses. Mckeon-white matter interface appears intact. Skull and face: Calvarium and facial bones appear intact, without suspicious lesions. Orbits appear normal. Sinuses: Sinuses and mastoids are clear. HEAD CT ANGIOGRAPHY: Anterior circulation: Intracranial internal carotid arteries are normal in size and flow. The flow within the paired anterior cerebral arteries is normal and symmetric. The flow within the middle cerebral arteries is normal and symmetric. The anterior communicating artery is seen. No aneurysms are seen. Posterior circulation: Visualized portions of the vertebral arteries demonstrate normal caliber, and join to form a normal appearing basilar artery. Flow within the posterior cerebral arteries is normal and symmetric. No aneurysms are seen. NECK CT ANGIOGRAPHY: Carotid system: The great vessels demonstrate a conventional anatomy as they arise from the aortic arch. The origins of the common carotid arteries appear patent. The common carotid arteries demonstrate normal caliber and courses. The bifurcation regions are both widely patent. The internal carotid arteries demonstrate normal calibers and courses. Posterior circulation: The origins of the vertebral arteries both appear widely patent. The more superior extracranial portions of both vertebral arteries also demonstrate normal courses and calibers. They join to form a normal appearing basilar artery. Soft tissues: Visualized neck soft tissues demonstrate no suspicious abnormalities. Bones: No suspicious bony lesions. Visualized cervical spine appears normally aligned. IMPRESSION: No mass or hemorrhage seen, no evidence of acute or subacute ischemic injury. Intracranial and cervical MR angiogram imaging shows no areas of significant stenosis or occlusion. Source of current symptoms is not found. Any quantitative measurements of stenosis were performed using NASCET criteria. Dictated by: Haroon Kendall M.D. on 10/20/2020 at 11:59 Approved by: Haroon Kendall M.D. on 10/20/2020 at 12:05 ECG Data Attestation: I personally reviewed and interpreted this ECG as follows: (Sinus bradycardia rate 59 beats per minute. Normal intervals. No ectopy. No acute ST T wave changes.) Critical Care Time Critical Care Time Critical Care Time: Yes Total Critical Care Time: 50 Attestation: Critical care time included the initial a intervention with the patient, review of past medical records, review of Radiology, cardiac monitoring, and lab data. The results of the evaluation were discussed with the patient. The case was discussed with consulting neurologist, as well as the admitting hospitalist. Discharge Plan Departure Patient Disposition: Admitted As Inpatient Clinical Impression: Acute CVA (cerebrovascular accident), Bipolar affective disorder, Essential (primary) hypertension, Controlled type 2 diabetes mellitus without complication Admit Date/Time: 10/20/20 14:49 Admit Provider: Jessica Deal
--- NOTE | 2020-10-20 10:38 | DI.CT.S_ITS ---
PROCEDURE: CT STROKE INDICATIONS: Left side numbness, left side weakness. TECHNIQUE: Noncontrast 4.5 mm thick angled axial sections acquired from the foramen magnum to the vertex, with coronal reformats. For radiation dose reduction, the following was used: automated exposure control, adjustment of mA and/or kV according to patient size. COMPARISON: [facility], MR, MR BRAIN WITHOUT CONTRAST, 01/23/2019, 14:08. [facility], CT, HEAD WITHOUT CONTRAST, 03/11/2016, 19:06. FINDINGS: Image quality: Excellent. CSF spaces: Basal cisterns are patent. No extra-axial fluid collections. Ventricles are prominent but symmetric in size and shape. Brain: No midline shift. No intracranial masses or hemorrhage. Mild cerebral volume loss. Mild periventricular white matter chronic small vessel ischemic changes. Skull and face: Calvarium and visualized facial bones are intact, without suspicious lesions. Sinuses: Visualized sinuses and mastoids are clear. IMPRESSION: 1. No acute intracranial abnormalities. The result was discussed with Dr. Lion prior to dictation. This study fulfills neurological imaging criteria for inclusion or exclusion of acute stroke therapies based on available published neurological imaging guidelines. Dictated by: Ammy Russell M.D. on 10/20/2020 at 10:58 Approved by: Ammy Russell M.D. on 10/20/2020 at 11:01
[2020-10-20 10:51] LABS: Add Manual Diff / Slide Review NO; Basophils Absolute Auto 100 /uL (0-100); Basophils Percent Auto 1.3 % (0-2); Eosinophils Absolute Auto 300 /uL (0-450); Eosinophils Percent Auto 3.7 % (2-4); Hematocrit 39.1 % (36-46); Lymphocytes Absolute Auto 2300 /uL (1100-4500); Lymphocytes Percent Auto 28.3 % (25-40); Mean Corpuscular HGB Conc 33.3 % (30-36); Mean Corpuscular Hemoglobin 29.2 PG (26-34); Mean Corpuscular Volume 87.8 fL (80-100); Monocytes Absolute Auto 600 /uL (0-900); Monocytes Percent Auto 7.9 % (3-14); Neutrophils Absolute Auto 4700 /uL (1500-7000); Neutrophils Percent Auto 58.8 % (50-75); Platelet Count 220 X10^3/uL (150-400); Red Blood Cell Count 4.45 X10^6/uL (4.0-5.2); Red Cell Distribution Width 13.6 % (11.6-14.8)
[2020-10-20 10:58] LABS: INR 0.9 (0.9-1.3); Prothrombin Time 10.3 SECONDS (10.1-12.7)
--- NOTE | 2020-10-20 11:00 | DI.CT.S_ITS ---
PROCEDURE: CT ANGIO HEAD AND NECK INDICATIONS: Left side weakness and numbness. TECHNIQUE: Pre-contrast 4.5 mm thick sections acquired from the foramen magnum to the vertex. After the administration of intravenous contrast, 1 mm thick sections acquired from the aortic arch through the [place] of [place]. Post-contrast 4.5 mm thick sections then re-acquired from the foramen magnum to the vertex. 3-dimensional ptxrabq-albrmvwxc-zckqibnswu (MIP) and/or volume rendering reformats were acquired of the central intracranial vasculature and neck separately. COMPARISON: [facility], CT, CT STROKE, 10/20/2020, 10:48. [facility], MR, MR BRAIN WITHOUT CONTRAST, 01/23/2019, 14:08. [facility], MR, MR BRAIN WITHOUT CONTRAST, 01/22/2019, 16:52. [facility], CT, CT ANGIO HEAD AND NECK, 01/22/2019, 10:53. [facility], CT, HEAD WITHOUT CONTRAST, 03/12/2018, 19:23. [facility], MR, STROKE PROTOCOL, 03/12/2016, 14:18. [facility], CT, HEAD WITHOUT CONTRAST, 03/11/2016, 19:06. FINDINGS: Image quality: Excellent. BRAIN: CSF spaces: Ventricles are normal in size and shape. Basal cisterns are patent. No extra-axial fluid collections. Brain: No midline shift. No intracranial bleeds or masses. Mckeon-white matter interface appears intact. Skull and face: Calvarium and facial bones appear intact, without suspicious lesions. Orbits appear normal. Sinuses: Sinuses and mastoids are clear. HEAD CT ANGIOGRAPHY: Anterior circulation: Intracranial internal carotid arteries are normal in size and flow. The flow within the paired anterior cerebral arteries is normal and symmetric. The flow within the middle cerebral arteries is normal and symmetric. The anterior communicating artery is seen. No aneurysms are seen. Posterior circulation: Visualized portions of the vertebral arteries demonstrate normal caliber, and join to form a normal appearing basilar artery. Flow within the posterior cerebral arteries is normal and symmetric. No aneurysms are seen. NECK CT ANGIOGRAPHY: Carotid system: The great vessels demonstrate a conventional anatomy as they arise from the aortic arch. The origins of the common carotid arteries appear patent. The common carotid arteries demonstrate normal caliber and courses. The bifurcation regions are both widely patent. The internal carotid arteries demonstrate normal calibers and courses. Posterior circulation: The origins of the vertebral arteries both appear widely patent. The more superior extracranial portions of both vertebral arteries also demonstrate normal courses and calibers. They join to form a normal appearing basilar artery. Soft tissues: Visualized neck soft tissues demonstrate no suspicious abnormalities. Bones: No suspicious bony lesions. Visualized cervical spine appears normally aligned. IMPRESSION: No mass or hemorrhage seen, no evidence of acute or subacute ischemic injury. Intracranial and cervical MR angiogram imaging shows no areas of significant stenosis or occlusion. Source of current symptoms is not found. Any quantitative measurements of stenosis were performed using NASCET criteria. Dictated by: Haroon Kendall M.D. on 10/20/2020 at 11:59 Approved by: Haroon Kendall M.D. on 10/20/2020 at 12:05
[2020-10-20 11:01] LABS: PTT Partial Thromboplastin Tim 31 SECONDS (26.4-36.2)
[2020-10-20 11:04] LABS: BUN Creatinine Ratio 21.6 (6-22); Blood Urea Nitrogen 22 mg/dL (7-17); Calcium 10.1 mg/dL (8.4-10.2); Carbon Dioxide 25 mmol/L (22-32); Chloride 107 mmol/L (98-107); Estimated Glomerular Filt Rate 55.9 mL/min (>60); Glucose 152 mg/dL (70-100); HEMOLYSIS < 15 (0-50); Sodium 140 mmol/L (137-145)
[2020-10-20] MEDS: ASPIRIN 81 MG CHEW TAB 324 MG PO (11:06)
[2020-10-20] MEDS: SODIUM CHLORIDE 0.9% 1,000 ML 150 ML IV (11:06)
[2020-10-20 11:58] LABS: UR Morphine/Opiate cutoff 300 Negative (Negative); Ur Creatinine Normal (Normal); Ur Specific Gravity Normal (Normal); Urine Amphetamines Negative (Negative); Urine Barbiturates Negative (Negative); Urine Benzodiazepines Negative (Negative); Urine Cocaine Negative (Negative); Urine MDMA Negative (Negative); Urine Methadone Negative (Negative); Urine Methamphetamines Negative (Negative); Urine Oxycodone Negative (Negative); Urine Phencyclidine Negative (Negative); Urine Tetrahydrocannabinol Negative (Negative); Urine Tricyclic Antidepressant Negative (Negative); Urine pH Normal (Normal)
[2020-10-20 12:25] LABS: Appearance Urine UA CLEAR; Bilirubin Urine UA NEGATIVE (NEGATIVE); Color Urine UA YELLOW; Glucose Urine UA NEGATIVE (Negative); Ketones Urine UA NEGATIVE (NEGATIVE); Leukocyte Esterase Urine UA NEGATIVE (NEGATIVE); Nitrite Urine UA NEGATIVE (Negative); Occult Blood Urine UA NEGATIVE (Negative); Protein Urine UA NEGATIVE (Negative); Specific Gravity Urine UA <=1.005 (1.000-1.035); Urobilinogen Urine UA 0.2 E.U./dL (0.2)
[2020-10-20 14:03] LABS: Lithium 0.6 mmol/L (0.6-1.2)
[2020-10-20] MEDS: CLOPIDOGREL 75 MG TABLET PO (14:08)
[2020-10-20 14:36] LABS: COVID19 -Nasal RAPID Negative (Negative)
[2020-10-20] MEDS: ALPRAZolam 0.5 MG TABLET PO ×2 (15:32→21:58)
[2020-10-20] MEDS: SODIUM CHLORIDE 0.9% 1,000 ML 100 ML IV (17:34)
--- NOTE | 2020-10-20 17:54 | PC.NURSE ---
Addendum entered by Razia Herbert R.N. 10/20/20 22:19: Patient had refused Losartan after stating at med rec that it was what she took it. Provider notified. Patient in agreement to take tonight. Medicated per JAN. Original Note: Admitted @ 1516, no hx of falls. Refused SCDs, med rec completed. AxOx3, can make needs known. Reports complicated health hx but states her health hx and allergies should be in the computer and it's not my fault they aren't. Patient is independent in the room, low fall risk.
--- NOTE | 2020-10-20 19:46 | PM.HP.1 ---
History of Present Illness History of Present Illness Date Patient Seen: 10/20/20 Time Patient Seen: 20:00 Chief complaint: Possible Stroke Narrative: Ms. Jammie Patiño is a 59-year-old female with a past medical history of bipolar affective disorder, panic attacks, diabetes type 2, hypertension and reports a history of a hemorrhagic stroke 7 years ago who presents to the ER following waking this morning approximately 9:00 a.m. a.m. with left-sided numbness. At about 9:30 a.m. the patient told her she had weakness with numbness the left arm neck and weak grasp. She states she was ataxic at home. The patient denies symptoms of headache, visual changes, dizziness or difficulty chewing or swallowing. Per the patient's she had no dysarthria. The patient does endorse increased stress over the holidays having a family dinner under pandemic conditions. The patient reports no recent complaints of cold or flu symptoms has had no known COVID-19 exposures. She denies complaints of recent fevers or chills nasal congestion or sore throat. She denies complaints of chest pain in the ER following a radiology procedure which she described a brief 10 second episode a severe dressed pressure followed by a ?release? with a 2nd similar episode though less in severity occurring sometime later. She had no associated complaints of nausea vomiting diaphoresis or shortness of breath during the episode. She has had no further recurrence and no notation is found in the ER record. The patient denies shortness of breath cough or wheezing and denies complaints of epigastric or abdominal pain, urinary symptoms, constipation or diarrhea. The patient reports she was dragging her left leg at home but ataxia not evident in the emergency department. The patient reports a previous hemorrhagic stroke 7 years ago and was treated at formerly [facility]. Subsequent imaging obtained in 2015 when the patient was evaluated for right-sided weakness and numbness diagnosed with TIA found no acute subacute or old infarcts. Upon arrival to the ER the patient is afebrile with temperature 97.8?, heart rate of 68, blood pressure 162/74, respirations 16 saturating 98% on room air. A CT of the brain was obtained per stroke protocol with no acute intracranial abnormality identified. The patient underwent CT angiogram which found no intracranial stenoses or aneurysms followed by MRI which finds brain parenchymal volume loss, chronic small vessel ischemic changes, no abnormal parenchymal enhancement, no findings of acute or subacute infarct, no significant intracranial artery abnormalities seen. Twelve lead EKG is obtained which finds of sinus Dionisio cardia at rate of 54 beats per minute, without ectopy or block, no ST or T-wave changes no indication of infarct. On laboratory analysis she has white count of 8.0, hemoglobin 13.0, hematocrit 39.1 and platelets 220. She has a PT of 10.3, INR of 0.9 with a PTT of 31. Her electrolytes are all within normal limits and she has a BUN of 22 and a creatinine of 1.02. She has a nonfasting glucose of 152. Urinary tox screen is negative, lithium level is 0.6. COVID screening is negative. Upon arrival to the ER the patient was scored an NIH of 3 with left arm drift, ataxia of 1 limb and 1.4 sensory loss. The drift and sensation had abated and resolved on re-evaluation by the ER physician. His [facility] neurology is consulted, per Dr. Davis the patient is not a tPA candidate with an NIH score of 3 and would not be a endovascular candidate either. No acute interventions indicated. Discussed changing aspirin to Plavix followed by the basic stroke workup. The patient received aspirin 324 mg in the ER and received Xanax 0.5 mg for the MRI. Patient is admitted to the medicine service for TIA. Patient History Medical History Bipolar affective disorder Controlled type 2 diabetes mellitus without complication Essential (primary) hypertension Hemorrhagic cerebrovascular accident (CVA) Otitis externa Surgical History Status post surgery (12/22/11) Status post tonsillectomy and adenoidectomy Family & Social History Family History (Updated 10/20/20 @ 23:03 by HAROON Panchal) Father Cardiovascular disease Heart attack Mother Diabetes mellitus Hypertension Brother Autism Social History: household members spouse Prior Living Arrangements House Safety & Behavioral: Feels Safe in Current Yes Environment Been Physically Hurt or No Threatened By a Person Suicidal Ideation Description None Suicide Plan Description No Plan Tobacco & Substance use: Smoking Status Never smoker alcohol intake never alcohol intake frequency holiday/special occasion Substance Use Type does not use Meds Home Medications and Allergies Home Medications Medication Instructions Recorded Confirmed Type levothyroxine [Synthroid] 125 mcg PO QDAY@0600 #90 07/09/12 10/20/20 Rx aspirin 81 mg PO QDAY #0 01/22/17 10/20/20 History albuterol sulfate 90 mcg/actuation 2 puff INHALATION Q4-6H PRN #18 02/11/20 10/20/20 Rx aerosol inhaler gram alprazolam 0.75 mg PO BEDTIME 10/20/20 10/20/20 History carvedilol 25 mg PO BID 10/20/20 10/20/20 History insulin glargine [Lantus Solostar 30 unit SUBCUT BID 10/20/20 10/20/20 History U-100 Insulin] lithium carbonate 300 mg PO BEDTIME 10/20/20 10/20/20 History metformin 1,000 mg PO BID 10/20/20 10/20/20 History olmesartan 20 mg PO BID 10/20/20 10/20/20 History Allergies Allergy/AdvReac Type Severity Reaction Status Date / Time clindamycin [CLINDAMYCIN] Allergy Severe Facial Verified 10/20/20 10:26 swelling erythromycin base Allergy Severe ANAPHYLAXIS Verified 10/20/20 10:26 Penicillins Allergy Severe ANAPHYLAXIS Verified 10/20/20 10:26 morphine AdvReac Mild VOMITING Verified 10/20/20 10:26 Review of Systems Review of Systems ROS: Yes All systems reviewed with the patient and are negative except as otherwise documented Exam Vital Signs (past 8 hours): - 10/20/20 12:03 10/20/20 12:11 10/20/20 12:30 Temperature Pulse Rate 146 H 60 51 L Respiratory Rate 15 13 15 Blood Pressure 199/84 H Pulse Oximetry 99 99 98 10/20/20 12:31 10/20/20 13:00 10/20/20 13:30 Temperature Pulse Rate 51 L 59 L 53 L Respiratory Rate 15 26 H 16 Blood Pressure 136/62 157/75 H Pulse Oximetry 98 99 98 10/20/20 13:31 10/20/20 14:00 10/20/20 14:01 Temperature Pulse Rate 54 L 53 L 58 L Respiratory Rate 16 25 H 20 Blood Pressure 157/71 H 155/68 H Pulse Oximetry 98 98 98 10/20/20 14:30 10/20/20 15:05 Temperature 97.6 F Pulse Rate 57 L 55 L Respiratory Rate 17 17 Blood Pressure 169/74 H 164/63 H Pulse Oximetry 98 99 Oxygen Delivery Method Room Air Narrative Exam Narrative: GENERAL APPEARANCE: well developed, obese female with a BMI of 34.7 lying supine in bed in no acute distress. HEENT: Normocephalic, no facial asymmetry, no ptosis PERRLA, conjunctiva clear, EOMs intact without nystagmus, no sinus tenderness to percussion, no rhinorrhea, mucous membranes are moist and pink, no tongue deviation. NECK/THYROID: neck supple, no JVD, no carotid bruit, no thyromegaly, trachea midline. LYMPH NODES: no cervical or supraclavicular lymphadenopathy. SKIN: [place], warm and dry, no visible lesions, rashes, ulcerations or petechiae. HEART: Bradycardic rate with regular rhythm, S1-S2, no murmur, no rubs or gallops, brisk capillary refill, no edema LUNGS: clear to auscultation bilaterally, no coarseness crackles or wheezing, no cough present CHEST: Symmetrical movement, no accessory muscle use, good tidal volume. ABDOMEN: Soft, round,, no epigastric or abdominal tenderness, no guarding or peritoneal signs, no organomegaly, no flank or suprapubic tenderness, active bowel tones. 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 NEUROLOGIC: AAO x4, patient continues to report left middle facial numbness no numbness in the forehead or the lower mandible, no facial droop or ptosis, no altered sensation of the extremities, patient demonstrates ataxia with the left upper limb however has good movement and target localization with spontaneous movement of the left arm, no lower limb ataxia, hearing grossly normal to speech. Presentation is inconsistent and varies between examiners and situation. PSYCH: Patient Brenda cooperative and interactive becoming emotionally labile and uncooperative and manipulative threatening to leave Against Medical Advice if she does not get her evening Xanax. Objective Labs Result Diagrams: 10/20/20 10:40 10/20/20 10:40 Labs: Laboratory Results - last 24 hr 10/20/20 10/20/20 10/20/20 10:40 10:40 10:40 WBC 8.0 RBC 4.45 Hgb 13.0 Hct 39.1 MCV 87.8 MCH 29.2 MCHC 33.3 RDW 13.6 Plt Count 220 Neut % (Auto) 58.8 Lymph % (Auto) 28.3 [place] % (Auto) 7.9 Eos % (Auto) 3.7 Baso % (Auto) 1.3 Neut # (Auto) 4700 Lymph # (Auto) 2300 [place] # (Auto) 600 Eos # (Auto) 300 Baso # (Auto) 100 PT 10.3 INR 0.9 APTT 31 Sodium 140 Potassium 5.0 Chloride 107 Carbon Dioxide 25 BUN 22 H Creatinine 1.02 Estimated GFR 55.9 L BUN/Creatinine Ratio 21.6 Glucose 152 H Calcium 10.1 Urine Color Urine Appearance Urine pH Ur Specific [place] Urine Protein Urine Glucose (UA) Urine Ketones Urine Occult Blood Urine Nitrate Urine Bilirubin Urine Urobilinogen Ur Leukocyte Esterase U Opiates 300ng/mL cut Ur Oxycodone Screen Urine Methadone Screen Ur Barbiturates Screen U Tricyclic Antidepress Ur Phencyclidine Scrn Ur Amphetamines Screen U Methamphetamines Scrn Ur MDMA Scrn (Ecstasy) U Benzodiazepines Scrn [place] Urine Cocaine Screen U Marijuana (THC) Screen COVID-19 PCR 10/20/20 10/20/20 10/20/20 10:40 11:50 11:50 WBC RBC Hgb Hct MCV MCH MCHC RDW Plt Count Neut % (Auto) Lymph % (Auto) [place] % (Auto) Eos % (Auto) Baso % (Auto) Neut # (Auto) Lymph # (Auto) [place] # (Auto) Eos # (Auto) Baso # (Auto) PT INR APTT Sodium Potassium Chloride Carbon Dioxide BUN Creatinine Estimated GFR BUN/Creatinine Ratio Glucose Calcium Urine Color Yellow Urine Appearance Clear Urine pH 6.0 Ur Specific Jackson <=1.005 Urine Protein Negative Urine Glucose (UA) Negative Urine Ketones Negative Urine Occult Blood Negative Urine Nitrate Negative Urine Bilirubin Negative Urine Urobilinogen 0.2 Ur Leukocyte Esterase Negative U Opiates 300ng/mL cut Negative Ur Oxycodone Screen Negative Urine Methadone Screen Negative Ur Barbiturates Screen Negative U Tricyclic Antidepress Negative Ur Phencyclidine Scrn Negative Ur Amphetamines Screen Negative U Methamphetamines Scrn Negative Ur MDMA Scrn (Ecstasy) Negative U Benzodiazepines Scrn Negative [place] 0.6 Urine Cocaine Screen Negative U Marijuana (THC) Screen Negative COVID-19 PCR 10/20/20 14:12 WBC RBC Hgb Hct MCV MCH MCHC RDW Plt Count Neut % (Auto) Lymph % (Auto) [place] % (Auto) Eos % (Auto) Baso % (Auto) Neut # (Auto) Lymph # (Auto) [place] # (Auto) Eos # (Auto) Baso # (Auto) PT INR APTT Sodium Potassium Chloride Carbon Dioxide BUN Creatinine Estimated GFR BUN/Creatinine Ratio Glucose Calcium Urine Color Urine Appearance Urine pH Ur Specific [place] Urine Protein Urine Glucose (UA) Urine Ketones Urine Occult Blood Urine Nitrate Urine Bilirubin Urine Urobilinogen Ur Leukocyte Esterase U Opiates 300ng/mL cut Ur Oxycodone Screen Urine Methadone Screen Ur Barbiturates Screen U Tricyclic Antidepress Ur Phencyclidine Scrn Ur Amphetamines Screen U Methamphetamines Scrn Ur MDMA Scrn (Ecstasy) U Benzodiazepines Scrn [place] Urine Cocaine Screen U Marijuana (THC) Screen COVID-19 PCR Negative Assessment & Plan Assessment & Plan narrative: This is a 59-year-old female patient with a past medical history of bipolar affective disorder, panic attacks, diabetes type 2, hypertension and reports a history of a hemorrhagic stroke 7 years ago who presents to the emergency department complaining of neurological symptoms resolving in the ER and absent on nursing assessment upon admission to the inpatient unit. The patient manifests symptoms an hour later on provider evaluation. 1. Transient ischemic attack, acute, present on arrival, active -patient reports onset of left-sided numbness upon waking this morning with last known normal 10/19/2020 at bedtime. The patient at 9:30 a.m. describes developing weakness and gait disturbance. -ABCDs 2 score is 6. -NIH score of upon arrival to the ER was 3, NIH score upon arrival to the inpatient unit was 0 and on re-evaluation by provider is 4 with noted inconsistencies. -patient has undergone CT of the brain, CT angiogram and MR stroke protocol with no evidence of acute or subacute infarct or vascular stenosis or abnormality. -the patient reports having previous hemorrhagic stroke for which she was treated at formerly [facility] 7 years ago. Will request medical records. MRI of the brain without contrast 03/31/2013 is of limited value due to patient motion artifact with a poorly differentiated diffusion signal in the left parietal lobe that overall suspicious for artifact, small underlying ischemia cannot be definitively excluded. -the patient was admitted for TIA symptoms in 2016 with complaints of right-sided weakness and numbness diagnosed with TIA at that time with imaging finding no stroke or intracranial lesions. -ordered echocardiogram in the morning. -lithium level is low normal at 0.6, will obtain hemoglobin A1c, TSH and free T4 as well as lipid panel for risk stratification. -patient refuses statins stating she had previous reaction to the medication making her sick. -as recommended by Dr. Davis [facility] neurology patient is started on clopidogrel 75 mg daily. -request PT and OT to evaluate and treat in the morning. 2. Diabetes type 2, insulin dependent, present on admission, stable. -serum glucose on admission labs is 152. -will continue patient's home regimen has reported of Lantus 30 mg twice daily, metformin 1000 mg twice daily. -ordered fingerstick glucose checks a.c. and hs, coverage with low-dose range correctional insulin. -small consistent carbohydrate heart healthy diet. -will obtain hemoglobin A1c. 3. Acquired Hypothyroidism, chronic, present on admission, stable -will continue the patient's home regimen of levothyroxine 125 mcg daily. -will obtain a TSH level as well as free T4. 3. Hypertension, chronic, present on admission, stable. -patient with elevated blood pressure upon arrival to the ER at 162/74 later dropping to 145/70 following admission. -will continue patient's home regimen of carvedilol 25 mg twice daily. -patient initially confirmed home medication of losartan 25 mg twice daily but later clarifies to olmesartan 20 mg twice daily. Olmesartan is not available discussed with patient and she will take the losartan 25 mg tonight and resume home certain in the morning. 4. Bipolar affective disorder, chronic, present on admission, stable. -will continue home regimen of lithium 300 mg at bedtime, lithium level is low normal at 0.6. -patient with labile affect with agitation. Information provided by the patient is inconsistent in varies between caregivers including symptoms neurological evaluation and medications. -patient receive Xanax 0.5 mg for her MRI and was adamant on receiving her bedtime dose of Xanax 0.5 mg stating otherwise she would go into withdrawals. Explained the rationale regarding blunting of neurological assessment in the patient remained adamant or with leave Against Medical Advice. Medication ordered as patient requested within the understanding that it could blunt neurological evaluation which the patient agreed. VTE prophylaxis: Enoxaparin IV fluid: Saline lock Diet: Small consistent carbohydrate heart healthy. Code status: Full code, the patient designates her is surrogate decision maker. The patient is admitted to the hospital due to the severity of her symptoms and potential for complications or adverse events. The patient is admitted as observation with expected length of stay to be less than 2 midnights. Scores GCS Michaela coma scale eye opening: Spontaneous Michaela coma scale verbal response: Orientated [place] coma scale motor response: Obey commands Michaela coma scale total score: 15 ABCD2 Age >= 60 years: no Initial BP. Either SBP >= 140 or DBP >= 90.: yes Clinical features of the TIA: unilateral weakness Duration of symptoms: >= 60 minutes History of diabetes: yes ABCD2 Score: 6 NIHSS Level of Conciousness: Alert, keenly responsive Ask month/age: Answers both questions correctly. Open/close eyes, close hand: Performs both tasks correctly Best gaze horizontal: Normal Visual oropeza: No visual loss Facial palsy: Normal symetrical movement Left arm drift: No drift for full 10 sec Right arm drift: No drift for full 10 sec Left leg drift: Some effort against gravity, cannot maintain, drifts down to bed (Inconsistent) Right leg drift: No drift for full 5 sec Limb ataxia: Present in one limb (Left arm, inconsistent) Sensory on face/arms/legs: Mild to moderate sensory loss, can tell touch (Left cheek, not for head, not lower face) Best language: No aphasia, normal Dysarthria: Normal Extinction or inattention: No abnormality Total NIH Stroke scale score: 4
[2020-10-20] MEDS: carvediloL 12.5 MG TABLET 25 MG PO (21:10)
[2020-10-20] MEDS: LITHIUM 300 MG ER TABLET PO (21:11)
[2020-10-20] MEDS: INSULIN GLARGINE 100 UNIT/ML 3ML PEN 30 UNIT SUBCUT (21:11)
[2020-10-20] MEDS: METFORMIN HCL 500 MG TABLET 1000 MG PO (21:11)
[2020-10-20] MEDS: INSULIN ASPART 100 UNIT/ML INSULN PEN SUBCUT (21:12)
[2020-10-20] MEDS: LOSARTAN 25 MG TABLET PO (21:57)
[2020-10-21] MEDS: LEVOTHYROXINE 125 MCG TABLET PO (05:52)
[2020-10-21 05:58] LABS: Add Manual Diff / Slide Review NO; Basophils Absolute Auto 100 /uL (0-100); Basophils Percent Auto 1.2 % (0-2); Eosinophils Absolute Auto 300 /uL (0-450); Eosinophils Percent Auto 3.8 % (2-4); Hematocrit 37.1 % (36-46); Hemoglobin 12.2 g/dL (12.0-16.0); Lymphocytes Absolute Auto 2400 /uL (1100-4500); Lymphocytes Percent Auto 33.6 % (25-40); Mean Corpuscular HGB Conc 32.9 % (30-36); Mean Corpuscular Hemoglobin 29.1 PG (26-34); Mean Corpuscular Volume 88.5 fL (80-100); Monocytes Absolute Auto 600 /uL (0-900); Monocytes Percent Auto 8.6 % (3-14); Neutrophils Absolute Auto 3800 /uL (1500-7000); Neutrophils Percent Auto 52.8 % (50-75); Platelet Count 219 X10^3/uL (150-400); Red Blood Cell Count 4.19 X10^6/uL (4.0-5.2); Red Cell Distribution Width 13.2 % (11.6-14.8); White Blood Cell Count 7.3 X10^3/uL (4.5-11.0)
[2020-10-21 06:00] VITALS: BP 126/72; PULSE 89; RESP 16; TEMP 36.4; O2SAT 98
[2020-10-21 06:10] LABS: Blood Urea Nitrogen 21 mg/dL (7-17); Calcium 9.5 mg/dL (8.4-10.2); Carbon Dioxide 23 mmol/L (22-32); Chloride 112 mmol/L (98-107); Cholesterol 183 mg/dL (140-199); Estimated Glomerular Filt Rate 57.1 mL/min (>60); Glucose 115 mg/dL (70-100); HDL Cholesterol 29 mg/dL (40-60); HEMOLYSIS < 15 (0-50); LDL Cholesterol Calculated 116 mg/dL (<100); Magnesium 1.6 mg/dL (1.6-2.3); Potassium 4.6 mmol/L (3.4-5.1); Sodium 141 mmol/L (137-145); Triglycerides 192 mg/dL (35-150)
[2020-10-21 06:15] LABS: Hemoglobin A1C% w Est Avg Glu 8.3 % (4.0-6.0)
[2020-10-21 06:32] LABS: Free T4, Direct Thyroxine 1.06 ng/dL (0.78-2.19)
[2020-10-21 06:46] LABS: Thyroid Stimulating Hormone 0.513 uIU/mL (0.47-4.68)
[2020-10-21 07:37] VITALS: BP 152/70; PULSE 66; RESP 13; TEMP 36.8; O2SAT 98
[2020-10-21 08:23] VITALS: O2SAT 98
--- NOTE | 2020-10-21 08:27 | PM.DS.1 ---
History of Present Illness History of Present Illness Date Patient Seen: 10/20/20 Chief complaint: Possible Stroke Narrative: Written by Seth Haroon PATIÑO: Ms. Jammie Patiño is a 59-year-old female with a past medical history of bipolar affective disorder, panic attacks, diabetes type 2, hypertension and reports a history of a hemorrhagic stroke 7 years ago who presents to the ER following waking this morning approximately 9:00 a.m. a.m. with left-sided numbness. At about 9:30 a.m. the patient told her she had weakness with numbness the left arm neck and weak grasp. She states she was ataxic at home. The patient denies symptoms of headache, visual changes, dizziness or difficulty chewing or swallowing. Per the patient's she had no dysarthria. The patient does endorse increased stress over the holidays having a family dinner under pandemic conditions. The patient reports no recent complaints of cold or flu symptoms has had no known COVID-19 exposures. She denies complaints of recent fevers or chills nasal congestion or sore throat. She denies complaints of chest pain in the ER following a radiology procedure which she described a brief 10 second episode a severe dressed pressure followed by a ?release? with a 2nd similar episode though less in severity occurring sometime later. She had no associated complaints of nausea vomiting diaphoresis or shortness of breath during the episode. She has had no further recurrence and no notation is found in the ER record. The patient denies shortness of breath cough or wheezing and denies complaints of epigastric or abdominal pain, urinary symptoms, constipation or diarrhea. The patient reports she was dragging her left leg at home but ataxia not evident in the emergency department. The patient reports a previous hemorrhagic stroke 7 years ago and was treated at [facility]. Subsequent imaging obtained in 2015 when the patient was evaluated for right-sided weakness and numbness diagnosed with TIA found no acute subacute or old infarcts. Upon arrival to the ER the patient is afebrile with temperature 97.8?, heart rate of 68, blood pressure 162/74, respirations 16 saturating 98% on room air. A CT of the brain was obtained per stroke protocol with no acute intracranial abnormality identified. The patient underwent CT angiogram which found no intracranial stenoses or aneurysms followed by MRI which finds brain parenchymal volume loss, chronic small vessel ischemic changes, no abnormal parenchymal enhancement, no findings of acute or subacute infarct, no significant intracranial artery abnormalities seen. Twelve lead EKG is obtained which finds of sinus Dionisio cardia at rate of 54 beats per minute, without ectopy or block, no ST or T-wave changes no indication of infarct. On laboratory analysis she has white count of 8.0, hemoglobin 13.0, hematocrit 39.1 and platelets 220. She has a PT of 10.3, INR of 0.9 with a PTT of 31. Her electrolytes are all within normal limits and she has a BUN of 22 and a creatinine of 1.02. She has a nonfasting glucose of 152. Urinary tox screen is negative, lithium level is 0.6. COVID screening is negative. Upon arrival to the ER the patient was scored an NIH of 3 with left arm drift, ataxia of 1 limb and 1.4 sensory loss. The drift and sensation had abated and resolved on re-evaluation by the ER physician. His [facility] neurology is consulted, per Dr. Davis the patient is not a tPA candidate with an NIH score of 3 and would not be a endovascular candidate either. No acute interventions indicated. Discussed changing aspirin to Plavix followed by the basic stroke workup. The patient received aspirin 324 mg in the ER and received Xanax 0.5 mg for the MRI. Patient is admitted to the medicine service for TIA. 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 MRI of the brain completed on 03/12/2013 -1. Stable appearance a very of high frontal convexity areas of sub arachnoid hemorrhage, no definite underlying mass lesion or vascular malformation is noted. 2. Scattered patchy areas of increased T2 FLAIR signal with subcortical white matter of bilateral frontal and parietal lobes and [place] slightly more confluent abnormal increased T2 FLAIR signal within the subcortical white matter bilateral occipital lobes. 3. Convexity subarachnoid hemorrhage and occipital lobe white matter findings are concerning for possible reversible cerebral vasoconstrictive syndrome or less likely posterior reversible leukoencephalopathy syndrome. Hospital course: Patient was admitted for suspected aneurysm rupture potentially causing subarachnoid hemorrhage. Patient was neurologically intact but complaining of loss of vision. She blinked to visual threat and spontaneously tract face is. Hypertensive to 200/110 on admission started on labetalol as needed IV and nicardipine drip. On day of admission 03/10/2013 angio done per report no aneurysm or AVM. Note patient has significant history of bipolar, after being hospital for 2nd day patient got agitated and later escalated to the point she walked out of the ICU room and keshawn carcamo was called. After short discussion the patient was brought back to the room and psych was consulted to assist bipolar management. Patient was given 1 time dose of Ativan and later scheduled per psych and psych felt that she is not competent enough to leave Against Medical Advice from the hospital. Patient need to workup for her sudden on set of headache and source of for vision loss. MRI done. SAH: Her convex all non aneurysm leak as age was thought to be related to are CVS supported by TCDs but not her angiogram results she was started on verapamil 60 mg p.o. q.12 hours. Rarely aneurysmal abnormalities can be missed early on by angio so plan is to repeat per Neurosurgery in 4 weeks. HTN: Patient was on 100 mg metoprolol XL as outpatient monotherapy presented with hypertensive urgency continues to have SBP. Likely central hypertension with superimposed secondary hypertension at least part of which is attributable to anxiety. Pressure is now better controlled but may need further medical control as outpatient. Bipolar: Per outpatient psychiatrist Dr. Schroeder mood has been difficult to control with benzodiazepine dependence over leg now with visual hallucinations she testing BP 80 with psychotic features. No evidence of seizures on EEG. During this hospital stay lithium dose was tapered to 300 twice daily per psychiatric recommendations. Should follow-up with her outpatient provider and consider tapering off of the mid starting lamotrigine. Diabetes type 2: Insulin dependent poorly controlled at home as A1c equals 8 Discharge Providers Provider Date of admission: 10/20/20 14:49 Discharge Date: 10/21/20 Primary care physician: Josseline Munson MD Consults: 10/20/20 16:40 Consult to Discharge Planning Routine Comment: Consult to Occupational Therapy Evaluate & Treat Comment: Physician Instructions: Evaluate and treat Consult to Physical Therapy Evaluate & Treat Comment: Physician Instructions: Evaluate and Treat Discharge provider: Jessica Deal DO Summary Hospital Course Discharge Diagnosis: 1. Transient ischemic attack, acute, present on admission. Resolved. 2. Bipolar affective disorder, chronic, present on admission. Stable. 3. Diabetes mellitus type 2, insulin-using, present on admission. Stable. 4. Hypertension, chronic, present on admission. Stable. 5. Hypothyroidism, chronic, present on admission. Stable. Hospital Course: Jammie Patiño is a 59-year-old female with a past medical history of bipolar affective disorder, panic attacks, hypertension, hyperlipidemia, diabetes mellitus type 2, and reported hemorrhagic stroke 7 years ago who presented to the ED complaining of left-sided numbness. 1. Transient ischemic attack, acute, present on admission. Resolved. -Patient reports onset of left-sided numbness upon waking this morning with last known normal 10/19/2020 at bedtime. The patient at 9:30 a.m. describes developing weakness and gait disturbance. -NIH score 3 in ED. NIH score inconsistent and varied between 0 and 3 per provider and nursing staff. -CT brain without contrast, CTA head and neck and MR stroke protocol with no evidence of acute or subacute infarct or vascular stenosis or acute or chronic abnormalities. -Patient reports having previous hemorrhagic stroke for which she was treated at [facility] 7 years ago, however, no current imaging evidence of previous hemorrhagic stroke. MRI of the brain without contrast 03/31/2013 is of limited value due to patient motion artifact with a poorly differentiated diffusion signal in the left parietal lobe that overall suspicious for artifact, small underlying ischemia cannot be definitively excluded. Patient was admitted for TIA symptoms in 2016 with complaints of right-sided weakness and numbness diagnosed with TIA at that time with imaging finding no stroke or intracranial lesions. -EKG demonstrated normal sinus rhythm without acute ischemic changes Continued to monitor on telemetry and patient remained in sinus rhythm without significant ectopy throughout hospitalization. -[place] level is normal at 0.6. -Risk stratified with Hemoglobin A1c was 8.3% indicative of fair glycemic control but room for improvement with lifestyle modification which was discussed in detail and fasting lipid panel which demonstrated poor lipid control with: Total cholesterol 183, triglycerides 192, LDL 116 (goal < 100) and HDL 29. -Dr. Davis [facility] neurology recommended discontinuation of aspirin and start clopidogrel 75 mg daily for stroke prophylaxis. Patient refused statin therapy due to previous intolerance. Recommended lifestyle modification including diet and exercise which was discussed in detail and follow-up with PCP and discuss other lipid lowering medications. 2. Bipolar affective disorder, chronic, present on admission. Stable. -Continued home lithium 300 mg at bedtime. [place] level normal at 0.6. -Patient with labile affect with agitation. Information provided by the patient is inconsistent including: neurological symptoms, neurological evaluation and medications. -Patient received Xanax 0.5 mg for her MRI and was adamant on receiving her bedtime dose of Xanax 0.5 mg stating otherwise she would go into withdrawals. Explained the rationale regarding blunting of neurological assessment and the patient remained adamant she must receive her Xanax or she would leave Against Medical Advice. Medication was ordered as patient requested with the understanding that it could blunt neurological evaluation. 3. Diabetes mellitus type 2, insulin-using, present on admission. Stable. -Hemoglobin A1c 8.3% inicative of fair glycemic control but could improve. -Continued home Lantus 30 mg twice daily and metformin 1000 mg twice daily. -Continued [facility] blood glucose checks and low-dose correctional scale insulin. -Continued carbohydrate consistent/heart healthy diet. 4. Hypertension, chronic, present on admission. Stable. -Allowed for permissive hypertension x 24 hours. -Continued home carvedilol 25 mg twice daily and equivalent of olmesartan 20 mg twice daily with losartan 25 mg twice daily. 5. Hypothyroidism, chronic, present on admission. Stable. -TSH normal at 0.513 -Continued home levothyroxine 125 mcg daily. Exam Vital Signs (past 8 hours): - 10/21/20 06:00 Temperature 97.6 F Pulse Rate 89 Respiratory Rate 16 Blood Pressure 126/72 Pulse Oximetry 98 Oxygen Delivery Method Room Air Oxygen Flow Rate 0 Narrative Exam Narrative: General: Older female sitting in bed and in no acute distress, well-developed, well-nourished, appropriately interactive. HEENT: Normocephalic, atraumatic. External ears without defect. Pupils equal, round, and reactive to light and accommodation. Anicteric sclerae, moist conjunctivae, and no lid lag. Oropharynx free of erythema and cobble stoning with moist mucosa. Neck: Supple with full range of motion. No jugular venous distension. No bruits. No lymphadenopathy or thyromegaly. Cardiovascular: Regular rate and rhythm without murmurs, rubs, or gallops appreciated. Pulmonary: Clear to auscultation bilaterally without crackles, wheezes, or rhonchi. Normal respiratory effort with no use of accessory muscles. Abdomen: Soft, obese, bowel tones present, nontender, nondistended. Extremities: No clubbing, cyanosis, or edema. Skin: Normal temperature, turgor, and texture; no rash, ulcers, or subcutaneous nodules appreciated. Neurological: Cranial nerves grossly intact. Normal muscle strength, tone, and bulk. Reflexes, coordination, and sensory function within normal limits. No known gait impairment. Psychiatric: Normal mood and affect. Alert and oriented to person, place, and time. Objective Labs Result Diagrams: 10/21/20 05:08 10/21/20 05:08 Labs: Laboratory Results - last 24 hr 10/20/20 10/20/20 10/20/20 10:40 10:40 10:40 WBC 8.0 RBC 4.45 Hgb 13.0 Hct 39.1 MCV 87.8 MCH 29.2 MCHC 33.3 RDW 13.6 Plt Count 220 Neut % (Auto) 58.8 Lymph % (Auto) 28.3 [place] % (Auto) 7.9 Eos % (Auto) 3.7 Baso % (Auto) 1.3 Neut # (Auto) 4700 Lymph # (Auto) 2300 [place] # (Auto) 600 Eos # (Auto) 300 Baso # (Auto) 100 PT 10.3 INR 0.9 APTT 31 Sodium 140 Potassium 5.0 Chloride 107 Carbon Dioxide 25 BUN 22 H Creatinine 1.02 Estimated GFR 55.9 L BUN/Creatinine Ratio 21.6 Glucose 152 H Hemoglobin A1c Calcium 10.1 Magnesium Triglycerides Cholesterol LDL Cholesterol, Calc HDL Cholesterol TSH Free T4 Urine Color Urine Appearance Urine pH Ur Specific Anderson Urine Protein Urine Glucose (UA) Urine Ketones Urine Occult Blood Urine Nitrate Urine Bilirubin Urine Urobilinogen Ur Leukocyte Esterase U Opiates 300ng/mL cut Ur Oxycodone Screen Urine Methadone Screen Ur Barbiturates Screen U Tricyclic Antidepress Ur Phencyclidine Scrn Ur Amphetamines Screen U Methamphetamines Scrn Ur MDMA Scrn (Ecstasy) U Benzodiazepines Scrn [place] Urine Cocaine Screen U Marijuana (THC) Screen COVID-19 PCR 10/20/20 10/20/20 10/20/20 10:40 11:50 11:50 WBC RBC Hgb Hct MCV MCH MCHC RDW Plt Count Neut % (Auto) Lymph % (Auto) [place] % (Auto) Eos % (Auto) Baso % (Auto) Neut # (Auto) Lymph # (Auto) [place] # (Auto) Eos # (Auto) Baso # (Auto) PT INR APTT Sodium Potassium Chloride Carbon Dioxide BUN Creatinine Estimated GFR BUN/Creatinine Ratio Glucose Hemoglobin A1c Calcium Magnesium Triglycerides Cholesterol LDL Cholesterol, Calc HDL Cholesterol TSH Free T4 Urine Color Yellow Urine Appearance Clear Urine pH 6.0 Ur Specific Anderson <=1.005 Urine Protein Negative Urine Glucose (UA) Negative Urine Ketones Negative Urine Occult Blood Negative Urine Nitrate Negative Urine Bilirubin Negative Urine Urobilinogen 0.2 Ur Leukocyte Esterase Negative U Opiates 300ng/mL cut Negative Ur Oxycodone Screen Negative Urine Methadone Screen Negative Ur Barbiturates Screen Negative U Tricyclic Antidepress Negative Ur Phencyclidine Scrn Negative Ur Amphetamines Screen Negative U Methamphetamines Scrn Negative Ur MDMA Scrn (Ecstasy) Negative U Benzodiazepines Scrn Negative [place] 0.6 Urine Cocaine Screen Negative U Marijuana (THC) Screen Negative COVID-19 PCR 10/20/20 10/21/20 10/21/20 14:12 05:08 05:08 WBC 7.3 RBC 4.19 Hgb 12.2 Hct 37.1 MCV 88.5 MCH 29.1 MCHC 32.9 RDW 13.2 Plt Count 219 Neut % (Auto) 52.8 Lymph % (Auto) 33.6 [place] % (Auto) 8.6 Eos % (Auto) 3.8 Baso % (Auto) 1.2 Neut # (Auto) 3800 Lymph # (Auto) 2400 [place] # (Auto) 600 Eos # (Auto) 300 Baso # (Auto) 100 PT INR APTT Sodium 141 Potassium 4.6 Chloride 112 H Carbon Dioxide 23 BUN 21 H Creatinine 1.00 Estimated GFR 57.1 L BUN/Creatinine Ratio 21.0 Glucose 115 H Hemoglobin A1c Calcium 9.5 Magnesium 1.6 Triglycerides 192 H Cholesterol 183 LDL Cholesterol, Calc 116 H HDL Cholesterol 29 L TSH Free T4 Urine Color Urine Appearance Urine pH Ur Specific Anderson Urine Protein Urine Glucose (UA) Urine Ketones Urine Occult Blood Urine Nitrate Urine Bilirubin Urine Urobilinogen Ur Leukocyte Esterase U Opiates 300ng/mL cut Ur Oxycodone Screen Urine Methadone Screen Ur Barbiturates Screen U Tricyclic Antidepress Ur Phencyclidine Scrn Ur Amphetamines Screen U Methamphetamines Scrn Ur MDMA Scrn (Ecstasy) U Benzodiazepines Scrn [place] Urine Cocaine Screen U Marijuana (THC) Screen COVID-19 PCR Negative 10/21/20 10/21/20 05:08 05:08 WBC RBC Hgb Hct MCV MCH MCHC RDW Plt Count Neut % (Auto) Lymph % (Auto) [place] % (Auto) Eos % (Auto) Baso % (Auto) Neut # (Auto) Lymph # (Auto) [place] # (Auto) Eos # (Auto) Baso # (Auto) PT INR APTT Sodium Potassium Chloride Carbon Dioxide BUN Creatinine Estimated GFR BUN/Creatinine Ratio Glucose Hemoglobin A1c 8.3 H Calcium Magnesium Triglycerides Cholesterol LDL Cholesterol, Calc HDL Cholesterol TSH 0.513 Free T4 1.06 Urine Color Urine Appearance Urine pH Ur Specific Anderson Urine Protein Urine Glucose (UA) Urine Ketones Urine Occult Blood Urine Nitrate Urine Bilirubin Urine Urobilinogen Ur Leukocyte Esterase U Opiates 300ng/mL cut Ur Oxycodone Screen Urine Methadone Screen Ur Barbiturates Screen U Tricyclic Antidepress Ur Phencyclidine Scrn Ur Amphetamines Screen U Methamphetamines Scrn Ur MDMA Scrn (Ecstasy) U Benzodiazepines Scrn [place] Urine Cocaine Screen U Marijuana (THC) Screen COVID-19 PCR [facility] Medical History Bipolar affective disorder Controlled type 2 diabetes mellitus without complication Essential (primary) hypertension Hemorrhagic cerebrovascular accident (CVA) Otitis externa Surgical History Status post surgery (12/22/11) Status post tonsillectomy and adenoidectomy Family History (Updated 10/20/20 @ 23:03 by HAROON Panchal) Father Cardiovascular disease Heart attack Mother Diabetes mellitus Hypertension Brother Autism Social History household members: spouse Smoking Status: Never smoker alcohol intake: never Discharge Plan Discharge Plan Patient Disposition: Home Provider Discharge Comment: You are being discharged home. You did not have a stroke. You have may have had a TIA (transient ischemic event or mini-stroke) or some other neurological sequela of your lithium causing left face and arm numbness. Your CT scans and MRI were normal and did not show any stroke, bleed or mass. Your arteries of the head and neck are all patent. Your EKG and heart monitoring were normal and no evidence of arrhythmia. Your aspirin has been discontinued in you have been started on Plavix (clopidogrel) 75 mg daily to prevent stroke. Did not start a statin due to your history of intolerance. Recommend lifestyle modification including diet and exercise to help control cholesterol and diabetes. Please follow-up with your primary care provider, Dr. Munson, in the next 1-2 weeks regarding your hospitalization and to discuss other lipid lowering agents. Discharge orders & Medications Prescriptions: New clopidogrel 75 mg Tablet 75 mg PO DAILY Qty: 30 RF: 0 Continued albuterol sulfate [Ventolin HFA] 90 mcg/actuation HFA aerosol inhaler 2 puff INHALATION Q4-6H PRN (Reason: shortness of breath or wheezing) Qty: 18 RF: 0 levothyroxine [Synthroid] 125 MCG tablet 125 mcg PO QDAY@0600 Qty: 90 RF: 3 carvedilol 25 mg Tablet 25 mg PO BID RF: 0 metformin 1,000 mg Tablet 1,000 mg PO BID RF: 0 lithium carbonate 300 MG tablet extended release 300 mg PO BEDTIME RF: 0 alprazolam 0.5 MG tablet 0.75 mg PO BEDTIME RF: 0 olmesartan 20 mg tablet 20 mg PO BID RF: 0 Lantus Solostar U-100 Insulin 100 unit/mL (3 mL) Insulin Pen 30 unit SUBCUT BID RF: 0 Discontinued aspirin 81 MG tablet,delayed release (DR/EC) 81 mg PO QDAY Qty: 0 RF: 0 Follow up/Referrals: Josseline Munson MD [Primary Care Provider] - 1 Week (appt:10/27 @ 9:20 with samira anand @ dr ochoa office please arrive 15-20 minutes prior to scheduled appointment ) Diet/Activity/Treatments Diet: Diet as Tolerated, Low-fat, Low-sodium and Low-cholesterol Activity: Activity as tolerated Visit Report/Discharge Packet Instructions: The Mediterranean Diet and Good Health, Clopidogrel, Mediterranean Diet May Reduce the Risk of Stroke in People with High Risk o Discharge Data Primary Care Provider: Josseline Munson Attending Provider: Jessica Deal
--- NOTE | 2020-10-21 08:42 | PT-IP ANOTE ---
Discussed this case with hospitalist Dr. Deal who requested PT and OT discharge orders. No rehab needs at this time.
[2020-10-21] MEDS: ASPIRIN EC 81 MG TABLET PO (09:13)
[2020-10-21] MEDS: METFORMIN HCL 500 MG TABLET 1000 MG PO (09:13)
[2020-10-21] MEDS: CLOPIDOGREL 75 MG TABLET PO (09:13)
[2020-10-21] MEDS: ENOXAPARIN 40 MG/0.4 ML SYRINGE SUBCUT (09:13)
[2020-10-21 09:18] VITALS: BP 152/70
[2020-10-21] MEDS: carvediloL 12.5 MG TABLET 25 MG PO (09:18)
[2020-10-21] MEDS: INFLUENZA VACCINE 0.5 ML SYRINGE IM (09:19)
[2020-10-21] MEDS: INSULIN GLARGINE 100 UNIT/ML 3ML PEN 30 UNIT SUBCUT (09:20)
[2020-10-21] MEDS: INSULIN ASPART 100 UNIT/ML INSULN PEN SUBCUT (09:21)
--- NOTE | 2020-10-21 09:50 | PC.NURSE ---
Pt is dressed and ready for discharge home with Spouse. Flu shot given to R. arm as requested. Went over d/c instructions with Pt and Spouse-discussed d/c meds, time of last dose, reviewed stroke education, side effects of new medication, and dietary recommendations. Pt has an appointment to follow up with her PCP. Pt denies further questions and was taken out via w/c by TWO NEEDLE MACHINE OPERATOR to POV with Spouse and all belongings.
--- NOTE | 2020-10-21 11:24 | CM.IDA ---
Initial DCP Assessment Note Pt is a 59 yo female, resident of [place], presented to ED w/stroke symptoms, admitted to the medical floor for TIA, PMH includes HTN, hypothyroidism, Bipolar Disorder (managed by psychiatrist Dr Schroeder) , Diabetes and anxiety disorder PCP: Josseline Munson Payer: OTIS Woodall Reviewed chart, DC order from Dr Deal has already been initiated this morning. Met w/patient to introduce role, brief visit. Dr Deal DC orders for therapy evals this AM, explained in multidisciplinary rounds that patient did not want nor need this service. Cleared for return home by Dr Deal. Patient feels confident at this time to return home w/family to assist and denies needs from this LAUNDRY MANAGER this morning. No needs expected from DC planning team although will remain available in case this changes today. Ninfa Houston, LAUNDRY MANAGER
== END 2020-10-21 09:53 | disposition home or self-care (01) ==
LOC: ED 10:22 → AC 15:07
PROVIDERS: Nurse Practitioner Adult Health; Admitting Provider Internal Medicine; Emergency Provider Emergency Medicine; Family Provider Internal Medicine; PCP Internal Medicine; Referring Provider Emergency Medicine; Visit Provider Internal Medicine
DX: R20.0 Anesthesia of skin (principal); R53.1 Weakness; R26.89 Other abnormalities of gait and mobility; F31.9 Bipolar disorder, unspecified; E11.9 Type 2 diabetes mellitus without complications; Z79.4 Long term (current) use of insulin; I10 Essential (primary) hypertension; E03.8 Other specified hypothyroidism; Z86.73 Personal history of transient ischemic attack (TIA), and cerebral infarction without residual deficits; Z11.59 Encounter for screening for other viral diseases; Z23 Encounter for immunization
CPT/HCPCS: 36415; 70450; 70496; 70498; 70548; 70553; 80048; 80061; 80178; 80305; 81003; 82962; 83036; 83735; 84439; 84443; 85025; 85610; 85730; 87635; 90471; 90656; 93005; 96360; 96361; 96372; 99284; 99291; G0378; A9579; J1650; Q2038; Q9967

== ENCOUNTER → 2020-11-10 11:43 | Outpatient (CLI) | payer BC, SELFPAY ==
[2020-10-20 14:51] VITALS: BMI 34.7
[2020-11-10 12:28] LABS: BUN Creatinine Ratio 25.5 (6-22); Blood Urea Nitrogen 25 mg/dL (7-17); Calcium 10.1 mg/dL (8.4-10.2); Carbon Dioxide 20 mmol/L (22-32); Chloride 106 mmol/L (98-107); Estimated Glomerular Filt Rate 58.5 mL/min (>60); Glucose 253 mg/dL (70-100); HEMOLYSIS 17 (0-50); Potassium 4.7 mmol/L (3.4-5.1); Sodium 137 mmol/L (137-145)
[2020-11-10 12:30] LABS: Hemoglobin A1C% w Est Avg Glu 7.8 % (4.0-6.0); Lithium 0.6 mmol/L (0.6-1.2)
== END ==
PROVIDERS: Family Provider Internal Medicine; PCP Internal Medicine; Referring Provider Internal Medicine; Visit Provider Internal Medicine
DX: F31.81 Bipolar II disorder (principal)
CPT/HCPCS: 36415; 80048; 80178; 83036

== ENCOUNTER 2020-11-10 13:17 | Emergency (ER) | payer BC, SELFPAY ==
[2020-10-20 14:51] VITALS: BMI 34.7
[2020-11-10] VITALS (10 sets, daily range): BP systolic 123–181; BP diastolic 60–88; PULSE 66–82; RESP 14–20; TEMP 36.8; O2SAT 96–100
--- NOTE | 2020-11-10 13:35 | PC.NURSE ---
patient refused all NIO's and wants to see the Doctor before she agrees to any tests, including IV start, xrays or EKG. She did give a urine and a poc was done Urine was negative
[2020-11-10 13:59] LABS: COVID19 -Nasal RAPID Negative (Negative)
--- NOTE | 2020-11-10 14:24 | ED_ITS ---
HPI - Nausea/Vomiting/Diarrhea General Chief complaint: Nausea/Vomiting/Diarrhea Stated complaint: pain in kidneys, trouble keeping water down,nausea Time Seen by Provider: 11/10/20 14:24 Source: patient and family () Mode of arrival: Ambulatory Limitations: no limitations History of Present Illness HPI Narrative: 59-year-old female comes emergency department with complaint of diarrhea that started approximately 5 days prior. She describes abdominal pain and pain into her kidneys left greater than the right. She states she has been nauseated and had some dry heaving particularly last 2-3 days. Patient denies any fevers, no chills, no cold cough or congestion. She denies any chest pain or shortness of breath. She states it feels like there is something full in her back pushing against her kidney on the left side. The patient denies any frequency, dysuria urgency or urinary incontinence. She states that she was having 5-6 episodes of diarrhea daily she has not had any today. She has not charles d any hematochezia or melena. She denies any vaginal discharge or bleeding. She describes halitosis. Patient has multiple medical issues most recently diagnosed with a stroke the beginning of October, hypertension, dyslipidemia, diabetes and was recently changed from her insulin to a once weekly injectable medication. She is on lithium for bipolar disorder, Plavix, carvedilol, levothyroxine, metformin and her new medication. She takes alprazolam as needed for panic attacks. Related Data Home Medications Medication Instructions Recorded Confirmed Lantus Solostar U-100 Insulin 30 unit SUBCUT BID 10/20/20 10/20/20 alprazolam 0.75 mg PO BEDTIME 10/20/20 10/20/20 carvedilol 25 mg PO BID 10/20/20 10/20/20 lithium carbonate 300 mg PO BEDTIME 10/20/20 10/20/20 metformin 1,000 mg PO BID 10/20/20 10/20/20 olmesartan 20 mg PO BID 10/20/20 10/20/20 Previous Rx's Medication Instructions Recorded levothyroxine [Synthroid] 125 mcg PO QDAY@0600 #90 07/09/12 albuterol sulfate 90 mcg/actuation 2 puff INHALATION Q4-6H PRN #18 02/11/20 aerosol inhaler gram clopidogrel 75 mg PO DAILY #30 tab 10/21/20 ondansetron HCl [Zofran] 4 mg PO Q6H PRN #5 tab 11/10/20 prednisone 20 mg PO DAILY #5 tab 11/10/20 Allergies Allergy/AdvReac Type Severity Reaction Status Date / Time clindamycin [CLINDAMYCIN] Allergy Severe Facial Verified 10/20/20 10:26 swelling erythromycin base Allergy Severe ANAPHYLAXIS Verified 10/20/20 10:26 Penicillins Allergy Severe ANAPHYLAXIS Verified 10/20/20 10:26 morphine AdvReac Mild VOMITING Verified 10/20/20 10:26 Patient History Medical History Bipolar affective disorder Controlled type 2 diabetes mellitus without complication Essential (primary) hypertension Hemorrhagic cerebrovascular accident (CVA) Otitis externa Surgical History Status post surgery (12/22/11) Status post tonsillectomy and adenoidectomy Family History Father Cardiovascular disease Heart attack Mother Diabetes mellitus Hypertension Brother Autism Social History household members: spouse Smoking Status: Never smoker alcohol intake: never Smoking Status: Never smoker alcohol intake frequency: holidays/special occasions only Substance Use Type: does not use Exam Narrative Exam Narrative: GENERAL: Alert and oriented x three, well-nourished, well- appearing female in mild distress. HEENT: Head normocephalic, atraumatic, EOMI, pupils reactive, face symmetric, moist mucous membranes NECK: Supple, full range of motion CARDIOVASCULAR: Regular rate and rhythm without murmurs, rubs or gallops. RESPIRATORY: Breath sounds equal bilaterally, no wheezes rales or rhonchi. ABDOMEN: Soft, generalized tenderness. Normoactive bowel sounds all 4 quadrants. No guarding or rebound, rigidity, no mass, no bruit or pulsatile mass. : No CVA tenderness EXTREMITIES: Normal range of motion, no clubbing or edema. Neurovascularly intact NEUROLOGICAL: Cranial nerves II through XII grossly intact. Moving all extremities SKIN: Warm, dry, no petechiae, no rashes or lesions. PSYCH: positive for anxiety, states bipolar symptoms controlled. Initial Vital Signs Initial Vital Signs: Vital Signs Temperature 98.2 F 11/10/20 13:22 Pulse Rate 82 11/10/20 13:22 Respiratory Rate 20 11/10/20 13:22 Blood Pressure 181/88 H 11/10/20 13:22 Pulse Oximetry 96 11/10/20 13:22 Course Orders Ordered: ED Orders 11/10/20 13:24 EKG-12 Lead Stat RT Consult Eval and Treat NOW 11/10/20 13:25 COVID19 Stat 11/10/20 15:23 CT abdomen pelvis w con Stat 11/10/20 15:30 Complete Blood Count AUTO DIFF Stat Comprehensive Metabolic Panel Stat Lactate (Lactic Acid) Stat Lipase Stat Economy Stat NT-proBNP (BNP-Adult 18+) Stat Troponin I Stat Discontinued Medications Sodium Chloride (Normal Saline 0.9%) 1,000 mls @ 1,000 mls/hr IV BOLUS ONE Stop: 11/10/20 16:22 Last Infusion: 11/10/20 17:15 Dose: 0 mls/hr Documented by: Admin: 11/10/20 15:35 Dose: 1,000 mls/hr Documented by: HERBERT Ondansetron HCl (Ondansetron 4 Mg/2 Ml Inj) 4 mg IV NOW ONE Stop: 11/10/20 15:24 Last Admin: 11/10/20 15:34 Dose: 4 mg Documented by: HERBERT Reevaluation(s) Reevaluation #1: Patient is feeling much better after about half for fluids have completed and Zofran. We reviewed her labs, imaging and findings today. Plan to start with steroids and a prescription for Zofran. Patient feels comfortable returning home and we discussed return precautions. Time: 16:51 Vital Signs Vital signs: Vital Signs - 8 hr 11/10/20 13:22 11/10/20 13:45 11/10/20 14:00 Temperature 98.2 F Pulse Rate 82 67 67 Respiratory Rate 20 Blood Pressure 181/88 H Pulse Oximetry 96 99 99 11/10/20 14:30 11/10/20 15:00 11/10/20 15:17 Temperature Pulse Rate 73 73 72 Respiratory Rate Blood Pressure 148/70 H Pulse Oximetry 99 100 99 11/10/20 15:30 11/10/20 15:49 11/10/20 16:00 Temperature Pulse Rate 70 74 71 Respiratory Rate Blood Pressure 150/64 H 123/60 Pulse Oximetry 99 100 100 11/10/20 16:50 Temperature Pulse Rate 66 Respiratory Rate 14 Blood Pressure 123/60 Pulse Oximetry 100 MDM - Nausea/Vomiting/Diarrhea Lab Data Attestation: I reviewed the patient's lab results. Result diagrams: 11/10/20 15:30 11/10/20 15:30 Labs: Lab Results 11/10/20 11/10/20 11/10/20 Range/Units 13:25 15:30 15:30 WBC 7.0 (4.5-11.0) X10^3/uL RBC 4.40 (4.0-5.2) X10^6/uL Hgb 12.8 (12.0-16.0) g/dL Hct 38.6 (36-46) % MCV 87.7 (80-100) fL MCH 29.2 (26-34) PG MCHC 33.3 (30-36) % RDW 13.4 (11.6-14.8) % Plt Count 226 (150-400) X10^3/uL Neut % (Auto) 54.7 (50-75) % Lymph % (Auto) 30.8 (25-40) % [place] % (Auto) 8.6 (3-14) % Eos % (Auto) 4.6 H (2-4) % Baso % (Auto) 1.3 (0-2) % Neut # (Auto) 3800 (2801-8047) /uL Lymph # (Auto) 2200 (6142-5894) /uL [place] # (Auto) 600 (0-900) /uL Eos # (Auto) 300 (0-450) /uL Baso # (Auto) 100 (0-100) /uL Sodium 142 (137-145) mmol/L Potassium 4.6 (3.4-5.1) mmol/L Chloride 109 H (98-107) mmol/L Carbon Dioxide 24 (22-32) mmol/L BUN 24 H (7-17) mg/dL Creatinine 1.06 H (0.52-1.04) mg/dL Estimated GFR 53.4 L (>60) mL/min BUN/Creatinine Ratio 22.6 H (6-22) Glucose 150 H D (70-100) mg/dL Lactate (0.7-2.1) mmol/L Calcium 10.4 H (8.4-10.2) mg/dL Total Bilirubin 0.2 (0.2-1.3) mg/dL AST 29 (14-36) IU/L ALT 44 H (<35) IU/L Alkaline Phosphatase 57 (38-126) U/L Troponin I < 0.012 (0.01-0.034) ng/mL NT-Pro-B Natriuret Pep 41 (<125) pg/mL Total Protein 7.8 (6.3-8.2) g/dL Albumin 4.7 (3.5-5.0) g/dL Globulin 3.1 (1.7-4.1) g/dL Albumin/Globulin Ratio 1.5 (1.0-2.8) Lipase 203 (23-300) U/L Economy (0.6-1.2) mmol/L COVID-19 PCR Negative (Negative) 11/10/20 11/10/20 Range/Units 15:30 15:30 WBC (4.5-11.0) X10^3/uL RBC (4.0-5.2) X10^6/uL Hgb (12.0-16.0) g/dL Hct (36-46) % MCV (80-100) fL MCH (26-34) PG MCHC (30-36) % RDW (11.6-14.8) % Plt Count (150-400) X10^3/uL Neut % (Auto) (50-75) % Lymph % (Auto) (25-40) % [place] % (Auto) (3-14) % Eos % (Auto) (2-4) % Baso % (Auto) (0-2) % Neut # (Auto) (6237-2362) /uL Lymph # (Auto) (5769-0729) /uL [place] # (Auto) (0-900) /uL Eos # (Auto) (0-450) /uL Baso # (Auto) (0-100) /uL Sodium (137-145) mmol/L Potassium (3.4-5.1) mmol/L Chloride (98-107) mmol/L Carbon Dioxide (22-32) mmol/L BUN (7-17) mg/dL Creatinine (0.52-1.04) mg/dL Estimated GFR (>60) mL/min BUN/Creatinine Ratio (6-22) Glucose (70-100) mg/dL Lactate 2.0 (0.7-2.1) mmol/L Calcium (8.4-10.2) mg/dL Total Bilirubin (0.2-1.3) mg/dL AST (14-36) IU/L ALT (<35) IU/L Alkaline Phosphatase (38-126) U/L Troponin I (0.01-0.034) ng/mL NT-Pro-B Natriuret Pep (<125) pg/mL Total Protein (6.3-8.2) g/dL Albumin (3.5-5.0) g/dL Globulin (1.7-4.1) g/dL Albumin/Globulin Ratio (1.0-2.8) Lipase (23-300) U/L Economy 0.6 (0.6-1.2) mmol/L COVID-19 PCR (Negative) Point of Care Testing Glucose POC 197 Urine Dip Bedside Urine Glucose Negative Bedside Urine Bilirubin - Negative Bedside Urine Ketone - Negative Urine Specific [place] 1.010 Bedside Urine Occult Blood - Negative Bedside Urine pH 6.0 Bedside Urine Protein - Negative Bedside Urine Urobilinogen - Negative Bedside Urine Nitrite - Negative Bedside Urine Leukocytes - Negative Esterase Imaging Data CT scan - abdomen/pelvis: Radiologist's Impression: [address] [id number] Scan ReportSigned Patient: Jammie Patiño R#: [id number]: 1960Acct:[id number]/Sex: 59 / FDate of Service: 11/10/20Loc: EDAccession Number: [id number] Procedure: CT abdomen pelvis w con Ordering Provider: Paulette Oliver D.O. PROCEDURE: CT ABDOMEN PELVIS W CON INDICATIONS: diarrhea x 5 days, dry heaves/vomiting x 2-3 days, abd pain TECHNIQUE: After the administration of intravenous contrast, 5 mm thick sections acquired from the diaphragm to the symphysis. 5 mm coronal and sagittal reformats were acquired. For radiation dose reduction, the following was used: automated exposure control, adjustment of mA and/or kV according to patient size. COMPARISON: [facility], CT, CT ABD PELVIS W CON, 08/03/2017, 18:04. FINDINGS: Image quality: Excellent. ABDOMEN: Lung bases: Lung bases are clear. Heart size is normal. Trace amount pericardial effusion is seen. Solid organs: Liver is normal in size . There is hepatic steatosis. No discrete hepatic lesion. Gallbladder is within normal limits. Biliary system is non dilated. Pancreas enhances normally. Spleen is normal in size and enhancement. No adrenal nodules. Kidneys demonstrate normal size and enhancement, without hydronephrosis. Multiple bilateral renal cysts are again seen, not significantly changed from previous study. Peritoneum and bowel: Bowel loops demonstrate normal wall thickness and caliber. No free fluid or air. Appendix is visualized and is within normal limits . Mild sigmoid colon wall thickening/edema is seen which may be due to under distension. Low- grade colitis cannot be excluded. Nodes and vessels: No retroperitoneal or mesenteric adenopathy by size criteria. Aorta and inferior vena cava are normal in size. Miscellaneous: No ventral hernias. PELVIS: Genitourinary: Bladder wall thickness is normal. Miscellaneous: No inguinal hernias or adenopathy. No gross abnormality is seen in uterus and bilateral adnexa. Bones: No suspicious bony lesions. No vertebral body compression fractures. IMPRESSION: 1. Questionable sigmoid colon wall thickening, which may be due to under distension. Low-grade sigmoid colitis cannot be excluded. No other area of abnormal bowel wall thickening. No free fluid or free air. Normal appendix. 2. Hepatic steatosis. No discrete hepatic lesion. 3. Bilateral renal cysts. No renal stone or hydronephrosis. Dictated by: Lavelle Summers M.D. on 11/10/2020 at 15:50 Approved by: Lavelle Summers M.D. on 11/10/2020 at 15:59 ECG Data Attestation: I personally reviewed and interpreted this ECG as follows: Prior ECG tracings: available for review Interpretation: Normal sinus rhythm rate of 66, LA 198, QRS [address] elevation appreciated no depression. Prior EKG from 10/20/20 for comparison. [facility] Narrative Medical decision making narrative: 59-year-old female comes to the department with abdominal pain anteriorly as well as a little bit of posterior. Some nausea occasional vomiting and diarrhea CT shows thickening consistent with colitis. Labs show no major abnormalities. Patient's EKG and troponin were included she had vague symptoms. These were both negative. Patient and I discussed today's findings plan for short course of steroids I did caution her that this may worsen her bipolar and to be aware and to stop the medication immediately if she notices this. Pain control is plan for Tylenol at home and Zofran as needed for nausea. We did discussed return precautions and patient expresses her understanding. She is feeling much better after Zofran and fluids. Discharge Plan Departure Patient Disposition: Home Clinical Impression: Colitis Instructions: DI for Colitis Activity Restrictions/Additional Instructions: Follow-up with your physician in the next week for recheck. Continue home medications as prescribed. Take steroids as prescribed until they are gone. If these medications make you feel ramped up for that her bipolar is worsening then stop the steroids. Take Zofran 1 tab every 6 hours as needed for nausea. Prescription to [facility] in [place] You may take Tylenol up to a 1000 mg every 8 hours as needed for pain. Your imaging today shows findings consistent with colitis. Return to the ER for fevers, rapidly worsening abdominal or back pain, persistent vomiting, black or bloody stools, new weakness, lightheadedness or passing out or other new or concerning symptoms. Prescriptions: New ondansetron HCl [Zofran] 4 mg tablet 4 mg PO Q6H PRN (Reason: nausea and vomiting) Qty: 5 RF: 0 prednisone 20 mg tablet 20 mg PO DAILY Qty: 5 RF: 0 No Action albuterol sulfate [Ventolin HFA] 90 mcg/actuation HFA aerosol inhaler 2 puff INHALATION Q4-6H PRN (Reason: shortness of breath or wheezing) Qty: 18 RF: 0 levothyroxine [Synthroid] 125 MCG tablet 125 mcg PO QDAY@0600 Qty: 90 RF: 3 carvedilol 25 mg Tablet 25 mg PO BID RF: 0 metformin 1,000 mg Tablet 1,000 mg PO BID RF: 0 lithium carbonate 300 MG tablet extended release 300 mg PO BEDTIME RF: 0 alprazolam 0.5 MG tablet 0.75 mg PO BEDTIME RF: 0 olmesartan 20 mg tablet 20 mg PO BID RF: 0 Lantus Solostar U-100 Insulin 100 unit/mL (3 mL) Insulin Pen 30 unit SUBCUT BID RF: 0 clopidogrel 75 mg Tablet 75 mg PO DAILY Qty: 30 RF: 0 Referrals: Josseline Munson MD [Primary Care Provider] -
--- NOTE | 2020-11-10 15:23 | DI.CT.S_ITS ---
PROCEDURE: CT ABDOMEN PELVIS W CON INDICATIONS: diarrhea x 5 days, dry heaves/vomiting x 2-3 days, abd pain TECHNIQUE: After the administration of intravenous contrast, 5 mm thick sections acquired from the diaphragm to the symphysis. 5 mm coronal and sagittal reformats were acquired. For radiation dose reduction, the following was used: automated exposure control, adjustment of mA and/or kV according to patient size. COMPARISON: [facility], CT, CT ABD PELVIS W CON, 08/03/2017, 18:04. FINDINGS: Image quality: Excellent. ABDOMEN: Lung bases: Lung bases are clear. Heart size is normal. Trace amount pericardial effusion is seen. Solid organs: Liver is normal in size . There is hepatic steatosis. No discrete hepatic lesion. Gallbladder is within normal limits. Biliary system is non dilated. Pancreas enhances normally. Spleen is normal in size and enhancement. No adrenal nodules. Kidneys demonstrate normal size and enhancement, without hydronephrosis. Multiple bilateral renal cysts are again seen, not significantly changed from previous study. Peritoneum and bowel: Bowel loops demonstrate normal wall thickness and caliber. No free fluid or air. Appendix is visualized and is within normal limits . Mild sigmoid colon wall thickening/edema is seen which may be due to under distension. Low-grade colitis cannot be excluded. Nodes and vessels: No retroperitoneal or mesenteric adenopathy by size criteria. Aorta and inferior vena cava are normal in size. Miscellaneous: No ventral hernias. PELVIS: Genitourinary: Bladder wall thickness is normal. Miscellaneous: No inguinal hernias or adenopathy. No gross abnormality is seen in uterus and bilateral adnexa. Bones: No suspicious bony lesions. No vertebral body compression fractures. IMPRESSION: 1. Questionable sigmoid colon wall thickening, which may be due to under distension. Low-grade sigmoid colitis cannot be excluded. No other area of abnormal bowel wall thickening. No free fluid or free air. Normal appendix. 2. Hepatic steatosis. No discrete hepatic lesion. 3. Bilateral renal cysts. No renal stone or hydronephrosis. Dictated by: Lavelle Summers M.D. on 11/10/2020 at 15:50 Approved by: Lavelle Summers M.D. on 11/10/2020 at 15:59
[2020-11-10] MEDS: ONDANSETRON 4 MG/2 ML INJ IV (15:34)
[2020-11-10 15:35] LABS: Add Manual Diff / Slide Review NO; Basophils Absolute Auto 100 /uL (0-100); Basophils Percent Auto 1.3 % (0-2); Eosinophils Absolute Auto 300 /uL (0-450); Eosinophils Percent Auto 4.6 % (2-4); Hematocrit 38.6 % (36-46); Hemoglobin 12.8 g/dL (12.0-16.0); Lymphocytes Absolute Auto 2200 /uL (1100-4500); Lymphocytes Percent Auto 30.8 % (25-40); Mean Corpuscular HGB Conc 33.3 % (30-36); Mean Corpuscular Hemoglobin 29.2 PG (26-34); Mean Corpuscular Volume 87.7 fL (80-100); Monocytes Absolute Auto 600 /uL (0-900); Monocytes Percent Auto 8.6 % (3-14); Neutrophils Absolute Auto 3800 /uL (1500-7000); Neutrophils Percent Auto 54.7 % (50-75); Platelet Count 226 X10^3/uL (150-400); Red Cell Distribution Width 13.4 % (11.6-14.8)
[2020-11-10] MEDS: SODIUM CHLORIDE 0.9% 1,000 ML 1000 ML IV (15:35)
[2020-11-10 15:50] LABS: Alanine Aminotransferase 44 IU/L (<35); Albumin 4.7 g/dL (3.5-5.0); Albumin Globulin Ratio 1.5 (1.0-2.8); Alkaline Phosphatase 57 U/L (38-126); Aspartate Aminotransferase 29 IU/L (14-36); BUN Creatinine Ratio 22.6 (6-22); Bilirubin Total 0.2 mg/dL (0.2-1.3); Blood Urea Nitrogen 24 mg/dL (7-17); Calcium 10.4 mg/dL (8.4-10.2); Carbon Dioxide 24 mmol/L (22-32); Chloride 109 mmol/L (98-107); Estimated Glomerular Filt Rate 53.4 mL/min (>60); Globulin 3.1 g/dL (1.7-4.1); Glucose 150 mg/dL (70-100); HEMOLYSIS < 15 (0-50); Potassium 4.6 mmol/L (3.4-5.1); Sodium 142 mmol/L (137-145); Total Protein 7.8 g/dL (6.3-8.2)
[2020-11-10 15:55] LABS: Lithium 0.6 mmol/L (0.6-1.2)
[2020-11-10 16:02] LABS: NT-proBNP (BNP-Adult 18+) 41 pg/mL (<125); Troponin I < 0.012 ng/mL (0.01-0.034)
[2020-11-10 16:19] LABS: Lipase 203 U/L (23-300)
[2020-11-10 17:33] LABS: Reflexed Lactate in 2 Hours Y
== END 2020-11-10 17:16 | disposition home or self-care (01) ==
PROVIDERS: Emergency Provider Emergency Medicine; Family Provider Internal Medicine; PCP Internal Medicine
DX: K52.9 Noninfective gastroenteritis and colitis, unspecified (principal); I10 Essential (primary) hypertension; E11.9 Type 2 diabetes mellitus without complications; E78.5 Hyperlipidemia, unspecified; Z20.828 Contact with and (suspected) exposure to other viral communicable diseases; Z86.73 Personal history of transient ischemic attack (TIA), and cerebral infarction without residual deficits; F31.9 Bipolar disorder, unspecified
CPT/HCPCS: 36415; 74177; 80053; 80178; 81003; 82962; 83605; 83690; 83880; 84484; 85025; 87635; 93005; 96361; 96374; 99283; 99284; J2405; Q9967

== ENCOUNTER → 2021-03-18 13:09 | Outpatient (CLI) | payer BC, SELFPAY ==
[2020-10-20 14:51] VITALS: BMI 34.7
[2021-03-18] MEDS: COVID-19 VACC #2, MRNA(MOD) 100 MCG/0.5 ML VIAL IM (13:15)
== END ==
PROVIDERS: Family Provider Internal Medicine; PCP Internal Medicine; Visit Provider Internal Medicine
DX: Z23 Encounter for immunization (principal)
CPT/HCPCS: 0012A; 91301

== ENCOUNTER → 2021-04-06 12:01 | Outpatient (CLI) | payer BC, SELFPAY ==
[2020-10-20 14:51] VITALS: BMI 34.7
[2021-04-06 15:24] LABS: BUN Creatinine Ratio 23.6 (6-22); Blood Urea Nitrogen 26 mg/dL (7-17); Calcium 9.9 mg/dL (8.4-10.2); Carbon Dioxide 20 mmol/L (22-32); Chloride 105 mmol/L (98-107); Glucose 301 mg/dL (70-100); HEMOLYSIS < 15 (0-50); Sodium 136 mmol/L (137-145)
[2021-04-06 21:10] LABS: Lithium 0.5 mmol/L (0.6-1.2)
== END ==
PROVIDERS: Family Provider Internal Medicine; PCP Internal Medicine; Referring Provider Psychiatry & Neurology Psychiatry; Visit Provider Psychiatry & Neurology Psychiatry
DX: F31.81 Bipolar II disorder (principal)
CPT/HCPCS: 36415; 80048; 80178

== ENCOUNTER → 2021-10-05 14:08 | Outpatient (CLI) | payer BC, SELFPAY ==
[2020-10-20 14:51] VITALS: BMI 34.7
[2021-10-05 15:51] LABS: BUN Creatinine Ratio 24.4 (6-22); Blood Urea Nitrogen 29 mg/dL (7-17); Calcium 10.9 mg/dL (8.4-10.2); Carbon Dioxide 22 mmol/L (22-32); Chloride 106 mmol/L (98-107); Estimated Glomerular Filt Rate 46.6 mL/min (>60); Glucose 125 mg/dL (70-100); HEMOLYSIS < 15 (0-50); Potassium 5.2 mmol/L (3.4-5.1); Sodium 140 mmol/L (137-145)
== END ==
PROVIDERS: Family Provider Internal Medicine; PCP Internal Medicine; Referring Provider Psychiatry & Neurology Psychiatry; Visit Provider Psychiatry & Neurology Psychiatry
DX: F31.9 Bipolar disorder, unspecified (principal)
CPT/HCPCS: 80048; 80178

== ENCOUNTER → 2022-01-05 13:58 | Outpatient (CLI) | payer BC, SELFPAY ==
[2020-10-20 14:51] VITALS: BMI 34.7
[2022-01-05 15:54] LABS: Lithium 0.7 mmol/L (0.6-1.2)
[2022-01-05 15:56] LABS: BUN Creatinine Ratio 25.6 (6-22); Blood Urea Nitrogen 30 mg/dL (7-17); Carbon Dioxide 21 mmol/L (22-32); Chloride 107 mmol/L (98-107); Estimated Glomerular Filt Rate 47.3 mL/min (>60); Glucose 108 mg/dL (70-100); Sodium 138 mmol/L (137-145)
[2022-01-05 15:58] LABS: HEMOLYSIS 83 (0-50)
[2022-01-05 15:59] LABS: Potassium 5.2 mmol/L (3.4-5.1)
== END ==
PROVIDERS: Family Provider Internal Medicine; PCP Internal Medicine; Referring Provider Psychiatry & Neurology Psychiatry; Visit Provider Psychiatry & Neurology Psychiatry
DX: F31.9 Bipolar disorder, unspecified (principal); N18.9 Chronic kidney disease, unspecified
CPT/HCPCS: 36415; 80048; 80178

== ENCOUNTER → 2022-01-09 15:58 | Outpatient (CLI) | payer BC, SELFPAY ==
[2020-10-20 14:51] VITALS: BMI 34.7
[2022-01-09 16:40] LABS: BUN Creatinine Ratio 19.2 (6-22); Blood Urea Nitrogen 29 mg/dL (7-17); Calcium 10.4 mg/dL (8.4-10.2); Carbon Dioxide 28 mmol/L (22-32); Chloride 106 mmol/L (98-107); Estimated Glomerular Filt Rate 35.3 mL/min (>60); Glucose 149 mg/dL (70-100); HEMOLYSIS < 15 (0-50); Potassium 5.3 mmol/L (3.4-5.1); Sodium 138 mmol/L (137-145)
== END ==
PROVIDERS: Family Provider Internal Medicine; PCP Internal Medicine; Referring Provider Psychiatry & Neurology Psychiatry; Visit Provider Psychiatry & Neurology Psychiatry
DX: E87.5 Hyperkalemia (principal)
CPT/HCPCS: 36415; 80048

== ENCOUNTER → 2022-01-11 11:25 | Outpatient (CLI) | payer BC, SELFPAY ==
[2020-10-20 14:51] VITALS: BMI 34.7
[2022-01-11 13:22] LABS: Lithium 0.6 mmol/L (0.6-1.2)
== END ==
PROVIDERS: Family Provider Internal Medicine; PCP Internal Medicine; Referring Provider Psychiatry & Neurology Psychiatry; Visit Provider Psychiatry & Neurology Psychiatry
DX: N28.9 Disorder of kidney and ureter, unspecified (principal)
CPT/HCPCS: 36415; 80178

== ENCOUNTER 2025-01-15 02:48 | Emergency (ER) | payer BC, SELFPAY ==
[2020-10-20 14:51] VITALS: BMI 34.7
[2025-01-15] VITALS (11 sets, daily range): BP systolic 116–143; BP diastolic 60–66; PULSE 77–99; RESP 14–18; TEMP 36.6–36.8; O2SAT 95–98; BMI 28.9
--- NOTE | 2025-01-15 02:55 | ED.GENADULT ---
HPI - General Adult General Chief complaint: Fall Stated complaint: GLF Time Seen by Provider: 01/15/25 02:49 History of Present Illness HPI narrative: 64-year-old woman with a history of bipolar disorder, panic attacks, type 2 diabetes, hypertension, stroke in October of 2020 presents with increasing falls and weakness over the last 3 days. She describes fevers and chills. She has hit her head multiple times. Today she was so weak she had trouble getting to the bathroom and was incontinent. Medics were called to help transport her into the emergency department. she does not describe headaches but is concerned that she may be having another stroke or had another stroke as a cause of the overall weakness and difficulty walking. Related Data Home Medications Medication Instructions Recorded Confirmed alprazolam 0.5 mg tablet 0.75 mg PO BEDTIME 10/20/20 10/20/20 carvedilol 25 mg tablet 25 mg PO BID 10/20/20 10/20/20 insulin glargine 100 unit/mL (3 30 unit SUBCUT BID 10/20/20 10/20/20 mL) subcutaneous pen (Lantus Solostar U-100 Insulin) lithium carbonate 300 mg 300 mg PO BEDTIME 10/20/20 10/20/20 tablet,extended release metformin 1,000 mg tablet 1,000 mg PO BID 10/20/20 10/20/20 olmesartan 20 mg tablet 20 mg PO BID 10/20/20 10/20/20 Previous Rx's Medication Instructions Recorded levothyroxine 125 mcg tablet 125 mcg PO QDAY@0600 ##90 07/09/12 (Synthroid) albuterol sulfate 90 mcg/actuation 2 puff inhalation Q4-6H PRN 02/11/20 aerosol inhaler (Ventolin HFA) shortness of breath or wheezing #18 grams clopidogrel 75 mg tablet 75 mg PO DAILY #30 tabs 10/21/20 ondansetron HCl 4 mg tablet 4 mg PO Q6H PRN nausea and 11/10/20 (Zofran) vomiting #5 tabs prednisone 20 mg tablet 20 mg PO DAILY #5 tabs 11/10/20 Allergies Allergy/AdvReac Type Severity Reaction Status Date / Time clindamycin [CLINDAMYCIN] Allergy Severe Facial Verified 10/20/20 10:26 swelling erythromycin base Allergy Severe ANAPHYLAXIS Verified 10/20/20 10:26 Penicillins Allergy Severe ANAPHYLAXIS Verified 10/20/20 10:26 morphine AdvReac Mild VOMITING Verified 10/20/20 10:26 Review of Systems Review of Systems Narrative: Pertinent positive and negative findings as per HPI Patient History Medical History Bipolar affective disorder Controlled type 2 diabetes mellitus without complication Essential (primary) hypertension Hemorrhagic cerebrovascular accident (CVA) Otitis externa Surgical History Status post surgery (12/22/11) Status post tonsillectomy and adenoidectomy Family History Father Cardiovascular disease Heart attack Mother Diabetes mellitus Hypertension Brother Autism Social History household members: spouse Smoking Status: Never smoker alcohol intake: never Smoking Status: Never smoker alcohol intake frequency: holidays/special occasions only Exam Initial Vital Signs Initial Vital Signs: Vital Signs Pulse Rate 99 H 01/15/25 02:50 Pulse Oximetry 96 01/15/25 02:50 General: fatigued but in no acute distress. Able to give a complete and coherent history. Well-nourished well-developed HEENT: Moist mucous membranes, normal sclera with reactive pupils, Respiratory: Lungs are clear to auscultation, no wheezing no rales no rhonchi. Full and symmetrical air movement Cardiac: Regular rate and rhythm no murmurs no bruits Abdomen: Soft, nontender, no flank pain Skin: Warm and dry, no rashes Neurologic: Grossly neurologically intact with no obvious asymmetries or abnormalities Extremities: No trauma, well perfused Psych: Cooperative, appropriate insight and affect Course Orders Ordered: ED Orders 01/15/25 02:50 Complete Blood Count AUTO DIFF Stat Comprehensive Metabolic Panel Stat Covid-19 + FLU A/B + RSV - PCR Stat 01/15/25 02:57 EKG-12 Lead Stat 01/15/25 02:58 CT head/brain wo con Stat 01/15/25 04:27 XR chest 1V Stat 01/15/25 04:48 Urine Culture Stat Urine Microscopic Stat 01/15/25 05:50 [place] Stat Discontinued Medications Sodium Chloride (Normal Saline 0.9%) 1,000 mls @ 1,000 mls/hr IV BOLUS ONE Stop: 01/15/25 04:53 Last Infusion: 01/15/25 04:59 Dose: Infused Documented By: Admin: 01/15/25 03:58 Dose: 1,000 mls/hr Documented By: Vital Signs Vital signs: Vital Signs - 8 hr 01/15/25 02:50 01/15/25 02:51 01/15/25 02:51 Temperature Pulse Rate 99 H 98 H Respiratory Rate Blood Pressure 143/66 H Pulse Oximetry 96 97 Oxygen Delivery Method 01/15/25 02:58 01/15/25 03:00 01/15/25 03:00 Temperature 98.3 F Pulse Rate 96 H 96 H Respiratory Rate 18 Blood Pressure 143/66 H 140/65 Pulse Oximetry 96 97 Oxygen Delivery Method Room Air 01/15/25 03:30 01/15/25 04:00 01/15/25 04:30 Temperature Pulse Rate 91 H 84 80 Respiratory Rate Blood Pressure Pulse Oximetry 96 97 97 Oxygen Delivery Method 01/15/25 04:57 01/15/25 04:57 01/15/25 05:00 Temperature Pulse Rate 82 79 Respiratory Rate Blood Pressure 127/60 Pulse Oximetry 98 96 Oxygen Delivery Method 01/15/25 05:30 Temperature Pulse Rate 79 Respiratory Rate 14 Blood Pressure Pulse Oximetry 95 Oxygen Delivery Method Medical Decision Making Lab Data 01/15/25 02:50 01/15/25 02:50 Labs: Lab Results 01/15/25 01/15/25 Range/Units 02:50 04:48 WBC 13.0 H (4.5-11.0) X10^3/uL RBC 4.49 (4.0-5.2) X10^6/uL Hgb 13.2 (12.0-16.0) g/dL Hct 39.5 (36-46) % MCV 88.0 (80-100) fL MCH 29.3 (26-34) PG MCHC 33.3 (30-36) % RDW 13.3 (11.6-14.8) % Plt Count 177 (150-400) X10^3/uL Neut % (Auto) 91.0 H (50-75) % Lymph % (Auto) 3.4 L (25-40) % [place] % (Auto) 4.8 (3-14) % Eos % (Auto) 0.2 L (2-4) % Baso % (Auto) 0.6 (0-2) % Neut # (Auto) 23004 H (7097-2803) /uL Lymph # (Auto) 400 L (5621-0302) /uL [place] # (Auto) 600 (0-900) /uL Eos # (Auto) 0 (0-450) /uL Baso # (Auto) 100 (0-100) /uL Sodium 137 (137-145) mmol/L Potassium 4.3 (3.4-5.1) mmol/L Chloride 102 (98-107) mmol/L Carbon Dioxide 23 (22-32) mmol/L BUN 37 H (7-17) mg/dL Creatinine 1.87 H (0.52-1.04) mg/dL Estimated GFR 30 L (>60) mL/min BUN/Creatinine Ratio 19.8 (6-22) Glucose 232 H (80-110) mg/dL Calcium 10.2 (8.4-10.2) mg/dL Total Bilirubin 0.7 (0.2-1.3) mg/dL AST 25 (14-36) IU/L ALT 28 (<35) IU/L Alkaline Phosphatase 59 (38-126) U/L Total Protein 7.5 (6.3-8.2) g/dL Albumin 4.5 (3.5-5.0) g/dL Globulin 3.0 (1.7-4.1) g/dL Albumin/Globulin Ratio 1.5 (1.0-2.8) Urine RBC None seen (0-5/HPF) Urine WBC 5-10/hpf H (0-5/HPF) Ur Squamous Epith Cells 0-1 /hpf (0-5/HPF) Urine Bacteria Many (>30) H (None) Ur Culture Indicated? Cult not indicated Vol Urine Centrifuged 10ml (spun) SARS-CoV-2 (PCR) Negative (Negative) Influenza A (RT-PCR) Flu a negative (NEGATIVE) Influenza B (RT-PCR) Flu b negative (NEGATIVE) RSV (PCR) Negative (Negative) Urine Dip Bedside Urine Glucose Negative Bedside Urine Bilirubin - Negative Bedside Urine Ketone - Negative Urine Specific [place] 1.010 Bedside Urine Occult Blood +/- Bedside Urine pH 6.0 Bedside Urine Protein +/- 15 Bedside Urine Urobilinogen +/- 1mg Bedside Urine Nitrite + Positive Bedside Urine Leukocytes +/- 15 Esterase Point of care testing: Urine Dip Bedside Urine Glucose Negative Bedside Urine Bilirubin - Negative Bedside Urine Ketone - Negative Urine Specific [place] 1.010 Bedside Urine Occult Blood +/- Bedside Urine pH 6.0 Bedside Urine Protein +/- 15 Bedside Urine Urobilinogen +/- 1mg Bedside Urine Nitrite + Positive Bedside Urine Leukocytes +/- 15 Esterase MDM Narrative Medical decision making narrative: CC: fevers, chills, increasing weakness and falls for the last 72 hours Complicating co-morbidities: currently living at home Data collected from: patient , partner Medical records reviewed: discharge summary from October [id number] after stroke is reviewed Differential considered: electrolyte abnormality, viral syndrome, subdural hematoma Exam documented above, pertinent findings include: patient is complaining of overall weakness, no localizing symptoms, describes herself as feeling somewhat fuzzy, exam is otherwise benign Lab Test results independently reviewed as above. Pertinent findings: CBC shows a white count at 13 with neutrophils 91 %. no anemia Chemistries show slight bump in her creatinine to 1.87. She is given a L of fluid. Remainder of electrolytes relatively unremarkable liver studies are reassuring No evidence for influenza, COVID or RSV Independently reviewed EKG: sinus rhythm at a rate of 95, no acute ischemia Imaging studies independently reviewed: CT scan of the head is unremarkable Chest x-ray shows some perihilar bronchitis which is consistent with a viral etiology Treatments: 1 L of IV fluid and oral Bactrim Discussion: 64-year-old woman presents complaining of weakness and falling. CT scan of the head is unremarkable. She does have a mild leukocytosis but no immediately localizing source. No evidence of lobar pneumonia but chest x-ray does suggest perihilar bronchitis which is more consistent with a viral etiology. No no suggestion of acute coronary syndrome. She is not septic and No influenza, RSV, COVID or COVID is identified. I still suspect that she does have a viral syndrome that is causing the fevers up to 102 with overall weakness. We will treat for a urinary tract infection, she has minimal complaints of dysuria. Her requests that a lithium level be added on which has been done and they will follow up with levels with their electronic access to medical records. Findings reviewed with both patient and her . Discussed anticipated course of resolution for viral syndrome and for urinary tract infection. We did also briefly discuss signs and symptoms of bacterial sepsis and reasons to return to the emergency department. At this point she is safe for discharge Discharge Plan Departure Patient Disposition: Home Clinical Impression: Acute viral syndrome, Urinary tract infection Instructions: DI for Viral Syndrome Activity Restrictions/Additional Instructions: Thank you for coming in today It looks like you are developing a bladder infection and I am going to give you a prescription for Bactrim for 7 days. I do not see signs of sepsis or overwhelming bacterial infection. With the overall weakness and fevers I still suspect that you do have a virus that is causing this. I tested for COVID, influenza a, influenza B and respiratory syncytial virus and you do not have these. There are multiple other viruses that base still be causing your symptoms There was no evidence of bleeding inside your head from any of your falls. No signs of bacterial pneumonia chest x-ray. I believe you still have a couple of more days of fevers and general weakness based on average expectations for resolving viruses, typical time for illnesses 7-10 days. If you feel that you are getting worse or you are having new symptoms please do return to the emergency department Please sign up for access to your records online. There is inflammation in your discharge handout. A lithium level has been added to your blood work and should be available for review within 24 hours. Prescriptions: No Action albuterol sulfate [Ventolin HFA] 90 mcg/actuation HFA aerosol inhaler 2 puff INHALATION Q4-6H PRN (Reason: shortness of breath or wheezing) Qty: 18 0RF levothyroxine [Synthroid] 125 MCG tablet 125 mcg PO QDAY@0600 Qty: 90 3RF carvedilol 25 mg Tablet 25 mg PO BID metformin 1,000 mg Tablet 1,000 mg PO BID lithium carbonate 300 MG tablet extended release 300 mg PO BEDTIME alprazolam 0.5 MG tablet 0.75 mg PO BEDTIME olmesartan 20 mg tablet 20 mg PO BID Lantus Solostar U-100 Insulin 100 unit/mL (3 mL) Insulin Pen 30 unit SUBCUT BID clopidogrel 75 mg Tablet 75 mg PO DAILY Qty: 30 0RF ondansetron HCl [Zofran] 4 mg tablet 4 mg PO Q6H PRN (Reason: nausea and vomiting) Qty: 5 0RF prednisone 20 mg tablet 20 mg PO DAILY Qty: 5 0RF Referrals: Josseline Munson MD [Primary Care Provider] - Stand Alone Forms: Patient Portal/API/Survey
--- NOTE | 2025-01-15 02:58 | DI.CT.S_ITS ---
PROCEDURE: CT HEAD/BRAIN WO CON INDICATIONS: multiple falls, hit head TECHNIQUE: Noncontrast 4.5 mm thick angled axial sections acquired from the foramen magnum to the vertex, with coronal and sagittal reformats. For radiation dose reduction, the following was used: automated exposure control, adjustment of mA and/or kV according to patient size. COMPARISON: None. FINDINGS: Image quality: Diagnostic. CSF spaces: Basal cisterns are patent. No extra-axial fluid collections. Ventricles are normal in size and shape. Brain: No midline shift. No intracranial masses or hemorrhage. Mckeon-white matter interface is normal. Skull and face: Calvarium and visualized facial bones are intact, without suspicious lesions. Sinuses: Visualized sinuses and mastoids are clear. IMPRESSION: No evidence acute intracranial process. Comment: Final report is concordant with preliminary interpretation provided by [facility]. Dictated by: Willie Toney M.D. on 01/15/2025 at 6:46 Approved by: Willie Toney M.D. on 01/15/2025 at 6:46
--- NOTE | 2025-01-15 03:05 | EKG_ITS ---
[place] [address] [id number] [address] [address] Test Date: 2025-01-15 Pat Name: Jammie Patiño Department: [facility] Room: Gender: Female Community Outreach Advocate: KIERRA : 1960 Requested By: Order Number: [id number] Reading MD: Seth Padgett Measurements Intervals [place] Rate: 95 P: 40 NV: 174 QRS: 24 QRSD: 98 T: 54 QT: 344 QTc: 432 Interpretive Statements Normal sinus rhythm Electronically Signed On 01-18-2025 18:54:58 PST by Seth Padgett
[2025-01-15 03:13] LABS: Add Manual Diff / Slide Review NO; Basophils Absolute Auto 100 /uL (0-100); Basophils Percent Auto 0.6 % (0-2); Eosinophils Absolute Auto 0 /uL (0-450); Eosinophils Percent Auto 0.2 % (2-4); Hematocrit 39.5 % (36-46); Hemoglobin 13.2 g/dL (12.0-16.0); Lymphocytes Absolute Auto 400 /uL (1100-4500); Lymphocytes Percent Auto 3.4 % (25-40); Mean Corpuscular HGB Conc 33.3 % (30-36); Mean Corpuscular Hemoglobin 29.3 PG (26-34); Monocytes Absolute Auto 600 /uL (0-900); Monocytes Percent Auto 4.8 % (3-14); Neutrophils Absolute Auto 11800 /uL (1500-7000); Platelet Count 177 X10^3/uL (150-400); Red Blood Cell Count 4.49 X10^6/uL (4.0-5.2); Red Cell Distribution Width 13.3 % (11.6-14.8)
[2025-01-15 03:36] LABS: Alanine Aminotransferase 28 IU/L (<35); Albumin 4.5 g/dL (3.5-5.0); Albumin Globulin Ratio 1.5 (1.0-2.8); Alkaline Phosphatase 59 U/L (38-126); Aspartate Aminotransferase 25 IU/L (14-36); BUN Creatinine Ratio 19.8 (6-22); Bilirubin Total 0.7 mg/dL (0.2-1.3); Blood Urea Nitrogen 37 mg/dL (7-17); Calcium 10.2 mg/dL (8.4-10.2); Carbon Dioxide 23 mmol/L (22-32); Chloride 102 mmol/L (98-107); Estimated Glomerular Filt Rate 30 mL/min (>60); Glucose 232 mg/dL (80-110); HEMOLYSIS < 15 (0-50); Potassium 4.3 mmol/L (3.4-5.1); Sodium 137 mmol/L (137-145); Total Protein 7.5 g/dL (6.3-8.2)
[2025-01-15 03:49] LABS: Influenza A - CEPHEID Flu A NEGATIVE (NEGATIVE); Influenza B - CEPHEID Flu B NEGATIVE (NEGATIVE); Respiratory Syncytial Virus Negative (Negative)
[2025-01-15] MEDS: SODIUM CHLORIDE 0.9% 1,000 ML 1000 ML IV (03:58)
[2025-01-15 04:01] LABS: COVID-19 CEPHEID 4-PLEX PCR Negative (Negative)
--- NOTE | 2025-01-15 04:27 | DI.RAD.S_ITS ---
PROCEDURE: XR CHEST 1V INDICATIONS: fever, cough TECHNIQUE: One view of the chest was acquired. COMPARISON: [facility], , CHEST 1 VIEW, 01/27/2017, 17:45. FINDINGS: Surgical changes and devices: None. Lungs and pleura: Question subtle left perihilar bronchitis.. No pleural effusions or pneumothorax. Mediastinum: Mediastinal contours appear normal. Heart size is normal. Bones and chest wall: No suspicious bony lesions. Overlying soft tissues appear unremarkable. IMPRESSION: Question subtle left perihilar bronchitis. Comment: Final report is concordant with preliminary interpretation provided by [facility]. Dictated by: Willie Toney M.D. on 01/15/2025 at 7:18 Approved by: Willie Toney M.D. on 01/15/2025 at 7:19
[2025-01-15 05:39] LABS: Bacteria Urine Many (>30); Culture Indicated Urine Cult Not Indicated; RBC Urine None Seen (0-5/HPF); Squamous Epithelial Cell Urine 0-1 /HPF (0-5/HPF); Urine Volume 10mL (spun); WBC Urine 5-10/HPF (0-5/HPF)
--- NOTE | 2025-01-15 05:59 | PC.NURSE ---
Patients requesting a lithium level. notified
[2025-01-15] MEDS: TRIMETH/SULFA 160/800 (DS) TABLET 1 TAB PO (06:11)
[2025-01-15 06:17] LABS: Lithium 1.1 mmol/L (0.6-1.2)
== END 2025-01-15 06:23 | disposition home or self-care (01) ==
PROVIDERS: Emergency Provider Emergency Medicine; Family Provider Internal Medicine; PCP Internal Medicine
DX: N39.0 Urinary tract infection, site not specified (principal); B34.9 Viral infection, unspecified; R29.6 Repeated falls; R07.9 Chest pain, unspecified
CPT/HCPCS: 0241U; 70450; 71045; 80053; 80178; 81003; 81015; 85025; 87077; 87086; 87186; 93005; 96360; 99284

== ENCOUNTER → 2025-08-21 10:25 | Outpatient (ROUT) | payer BC, SELFPAY ==
[2020-10-20 14:51] VITALS: BMI 34.7
[2025-08-21 10:47] LABS: INR 1.0 (0.9-1.3); Prothrombin Time 11.2 SECONDS (9.4-12.5)
[2025-08-21 10:50] LABS: PTT Partial Thromboplastin Tim 29 SECONDS (25.1-36.5)
== END ==
PROVIDERS: Family Provider Internal Medicine; PCP Internal Medicine; Visit Provider Family Medicine
DX: T14.8XXA Other injury of unspecified body region, initial encounter (principal)
CPT/HCPCS: 85610; 85730

== ENCOUNTER → 2025-08-21 10:33 | Outpatient (CLI) | payer BC, SELFPAY ==
[2020-10-20 14:51] VITALS: BMI 34.7
--- NOTE | 2025-08-21 10:45 | DI.RAD.S_ITS ---
PROCEDURE: XR KNEE LT 3V INDICATIONS: LT KNEE PAIN TECHNIQUE: 3 views of the knee were acquired. COMPARISON: None. FINDINGS: Bones: No fractures or dislocations. No suspicious bony lesions. Soft tissues: Small joint effusion. No suspicious soft tissue calcifications. IMPRESSION: No acute bony abnormality. Small knee joint effusion. Dictated by: Marcus Turner M.D. on 08/23/2025 at 22:51 Approved by: Marcus Turner M.D. on 08/23/2025 at 22:54
== END ==
PROVIDERS: Family Provider Internal Medicine; PCP Family Medicine; Referring Provider Family Medicine; Visit Provider Family Medicine
DX: M25.562 Pain in left knee (principal); T14.8XXA Other injury of unspecified body region, initial encounter; M25.462 Effusion, left knee
CPT/HCPCS: 73562; 85610; 85730

== ENCOUNTER → 2025-09-29 16:02 | Outpatient (CLI) | payer BC, SELFPAY ==
[2020-10-20 14:51] VITALS: BMI 34.7
--- NOTE | 2025-09-29 16:06 | DI.RAD.S_ITS ---
PROCEDURE: ORTHO-XR KNEE WB BILAT
== END ==
PROVIDERS: Family Provider Internal Medicine; PCP Family Medicine; Referring Provider Family Medicine; Visit Provider Family Medicine
DX: S86.911A Strain of unspecified muscle(s) and tendon(s) at lower leg level, right leg, initial encounter (principal); S86.912A Strain of unspecified muscle(s) and tendon(s) at lower leg level, left leg, initial encounter; X58.XXXA Exposure to other specified factors, initial encounter
CPT/HCPCS: 73564

== ENCOUNTER → 2025-10-20 12:32 | Outpatient (ROUT) | payer BC, SELFPAY ==
[2020-10-20 14:51] VITALS: BMI 34.7
[2025-10-20 12:44] LABS: INR 1.0 (0.9-1.3); Prothrombin Time 11.5 SECONDS (9.4-12.5)
[2025-10-20 12:47] LABS: PTT Partial Thromboplastin Tim 29 SECONDS (25.1-36.5)
== END ==
PROVIDERS: Family Provider Internal Medicine; PCP Family Medicine; Visit Provider Family Medicine
DX: Z13.0 Encounter for screening for diseases of the blood and blood-forming organs and certain disorders involving the immune mechanism (principal); R79.9 Abnormal finding of blood chemistry, unspecified
CPT/HCPCS: 85610; 85730